=== PATIENT | female | born 1945 | race Two or more races ===

== ENCOUNTER 2017-03-21 18:20 | Emergency (ER) | payer MEDICARE, MEDICAID ==
[~2017-03-21] VITALS: Ht 157.5 cm; Wt 90.7 kg
--- NOTE | 2017-03-21 18:37 | NUR ---
DR REYES AT THE BEDSIDE FOR EVAL AND EXAM.
--- NOTE | 2017-03-21 18:39 | NUR ---
Pt states she is unable to recall her home medications at this time.
--- NOTE | 2017-03-21 20:09 | NUR ---
Patient discharged to home in stable conditon. Written and verbal after care instructions given. Patient verbalizes understanding of instructions.
== END 2017-03-21 20:10 | disposition home or self-care (01) ==
LOC: ER 18:20
DX: G81.90 Hemiplegia, unspecified affecting unspecified side (principal); R29.810 Facial weakness; I10 Essential (primary) hypertension; Z86.73 Personal history of transient ischemic attack (TIA), and cerebral infarction without residual deficits; Z79.82 Long term (current) use of aspirin
CPT/HCPCS: 70450; 99284; A4663

== ENCOUNTER 2018-03-18 12:55 | Inpatient (IN) | payer MEDICARE, MEDICAID ==
[~2018-03-18] VITALS: Ht 152.4 cm; Wt 92.1 kg
[2018-03-18] MEDS ORDERED: HYDROMORPHONE 2 MG/1 ML DISP.SYRIN ONE (13:39)
[2018-03-18] MEDS ORDERED: ONDANSETRON 4 MG/2 ML VIAL ONE (13:39)
[2018-03-18] MEDS ORDERED: ONDANSETRON 4 MG/2 ML VIAL IV ONE (13:45)
[2018-03-18] MEDS ORDERED: HYDROMORPHONE 1 MG/1 ML DISP.SYRIN IM ONE (13:45)
[2018-03-18 14:40] VITALS: BP 143/63
[2018-03-18] MEDS ORDERED: IV NORMAL SALINE 500 ML BAG IV ONE (15:00)
[2018-03-18 15:16] LABS: CARBON DIOXIDE 28 mmol/L (21-32); CHLORIDE 103 mmol/L (98-107); CREATININE 1.5 mg/dL (0.6-1.3); GLUCOSE 88 mg/dL (74-106); POTASSIUM 3.9 mmol/L (3.5-5.1); UREA NITROGEN, BLOOD 24 mg/dL (7-18)
[2018-03-18 15:17] LABS: BASOPHILS % (AUTO) 0.6 % (0.0-2.0); EOSINOPHILS # (AUTO) 0.1 K/uL (0.0-0.7); EOSINOPHILS % (AUTO) 1.6 % (0.0-7.0); HEMATOCRIT 34.2 % (31.2-41.9); HEMOGLOBIN 11.4 g/dL (10.9-14.3); LYMPHOCYTES # (AUTO) 1.8 K/uL (20.0-40.0); LYMPHOCYTES % (AUTO) 29.3 % (20.5-51.5); MEAN CORPUSCULAR HEMOGLOBIN 29.8 uug (24.7-32.8); MEAN CORPUSCULAR HGB CONC 33 g/dL (32.3-35.6); MEAN CORPUSCULAR VOLUME 89.5 fL (75.5-95.3); MONOCYTES # (AUTO) 0.4 K/uL (2.0-10.0); MONOCYTES % (AUTO) 6.4 % (0.0-11.0); NEUTROPHILS # (AUTO) 3.8 K/uL (1.8-8.9); NEUTROPHILS % (AUTO) 62.1 % (38.5-71.5); PLATELET COUNT (AUTO) 172 K/uL (179-408); RED BLOOD CELL COUNT(AUTO) 3.82 MIL/uL (3.63-4.92); WHITE BLOOD COUNT (AUTO) 6.1 K/uL (3.8-11.8)
[2018-03-18 15:21] LABS: ALANINE AMINOTRANSFERASE 22 U/L (14-59); ALKALINE PHOSPHATASE 59 U/L (50-136); ASPARTATE AMINOTRANSFERASE 26 U/L (15-37); BILIRUBIN,DIRECT 0.1 mg/dL (0.0-0.2); BILIRUBIN,TOTAL 0.3 mg/dL (0.2-1.0); LIPASE 138 U/L (73-393); TOTAL PROTEIN, SERUM 7.2 g/dL (6.4-8.2)
[2018-03-18] MEDS ORDERED: OMEG-49 PO (18:17)
[2018-03-18] MEDS ORDERED: CLOP75TA15 PO (18:17)
[2018-03-18] MEDS ORDERED: ATOR20TA PO (18:17)
[2018-03-18] MEDS ORDERED: TRAM50TA2 PO (18:17)
[2018-03-18] MEDS ORDERED: OMEP40CA37 PO (18:17)
[2018-03-18] MEDS ORDERED: SERT25TA PO (18:17)
[2018-03-18] MEDS ORDERED: GABA-534 PO (18:17)
[2018-03-18] MEDS ORDERED: METO-356 PO (18:17)
[2018-03-18] MEDS ORDERED: ZOLP10TA2 PO (18:17)
[2018-03-18] MEDS ORDERED: VALS160T2 PO (18:17)
[2018-03-18] MEDS ORDERED: LEVO88TA2 PO (18:17)
[2018-03-18 20:00] VITALS: BP 116/48
[2018-03-18] MEDS ORDERED: TRAMADOL HCL 50 MG TABLET PO PRN (20:45)
[2018-03-18] MEDS ORDERED: Z GUARD REMEDY PASTE 57 GM TUBE TOP PRN (20:45)
[2018-03-18] MEDS ORDERED: ONDANSETRON 4 MG/2 ML VIAL IV PRN (20:45)
[2018-03-18] MEDS ORDERED: ACETAMINOPHEN 325 MG TABLET PO PRN (20:45)
[2018-03-18] MEDS: HYDROCODONE/APAP 5-325MG TABLET PO PRN (21:04)
[2018-03-18] MEDS: ONDANSETRON 4 MG/2 ML VIAL IV PRN (21:04)
[2018-03-18] MEDS: IV NS 1000 ML 1,000 ML IV PRN (21:24)
[2018-03-18] MEDS: ZOLPIDEM 5 MG TABLET PO PRN (22:50)
[2018-03-19] MEDS: HYDROCODONE/APAP 5-325MG TABLET PO PRN ×2 (03:50→14:01)
[2018-03-19 05:02] VITALS: BP 138/55
[2018-03-19 06:38] LABS: BASOPHILS % (AUTO) 0.3 % (0.0-2.0); EOSINOPHILS # (AUTO) 0.1 K/uL (0.0-0.7); EOSINOPHILS % (AUTO) 1.5 % (0.0-7.0); HEMATOCRIT 28.9 % (31.2-41.9); HEMOGLOBIN 9.7 g/dL (10.9-14.3); LYMPHOCYTES # (AUTO) 1.6 K/uL (20.0-40.0); LYMPHOCYTES % (AUTO) 29.7 % (20.5-51.5); MEAN CORPUSCULAR HEMOGLOBIN 29.7 uug (24.7-32.8); MEAN CORPUSCULAR HGB CONC 34 g/dL (32.3-35.6); MEAN CORPUSCULAR VOLUME 88.4 fL (75.5-95.3); MONOCYTES # (AUTO) 0.4 K/uL (2.0-10.0); NEUTROPHILS # (AUTO) 3.4 K/uL (1.8-8.9); NEUTROPHILS % (AUTO) 61.5 % (38.5-71.5); PLATELET COUNT (AUTO) 147 K/uL (179-408); RED BLOOD CELL COUNT(AUTO) 3.27 MIL/uL (3.63-4.92); WHITE BLOOD COUNT (AUTO) 5.5 K/uL (3.8-11.8)
[2018-03-19] MEDS: LEVOTHYROXINE SODIUM 88 MCG TABLET PO SCH (06:43)
[2018-03-19 07:09] LABS: ALANINE AMINOTRANSFERASE 16 U/L (14-59); ALKALINE PHOSPHATASE 47 U/L (50-136); ASPARTATE AMINOTRANSFERASE 22 U/L (15-37); BILIRUBIN,TOTAL 0.3 mg/dL (0.2-1.0); CARBON DIOXIDE 27 mmol/L (21-32); CHLORIDE 105 mmol/L (98-107); CHOLESTEROL 264 mg/dL (<200); CREATININE 1.5 mg/dL (0.6-1.3); GLUCOSE 79 mg/dL (74-106); HDL CHOLESTEROL 45 mg/dL (40-60); PHOSPHOROUS 3.6 mg/dL (2.5-4.9); POTASSIUM 4.3 mmol/L (3.5-5.1); TOTAL PROTEIN, SERUM 5.8 g/dL (6.4-8.2); TRIGLYCERIDES 180 MG/DL (30-150); UREA NITROGEN, BLOOD 24 mg/dL (7-18)
[2018-03-19] MEDS: SERTRALINE HCL 50 MG TABLET PO SCH (08:19)
[2018-03-19] MEDS: GABAPENTIN 300 MG CAPSULE PO SCH ×2 (08:19→16:35)
[2018-03-19] MEDS: CLOPIDOGREL 75 MG TABLET PO SCH (08:21)
[2018-03-19] MEDS ORDERED: METOPROLOL SUCCINATE XL 25 MG TAB.SR.24H PO SCH (09:00)
[2018-03-19] MEDS ORDERED: ATORVASTATIN 20 MG TABLET PO SCH (09:00)
[2018-03-19] MEDS ORDERED: VALSARTAN 160 MG TABLET PO SCH (09:00)
[2018-03-19] MEDS: IV NS 1000 ML 1,000 ML IV PRN (11:25)
[2018-03-19 11:30] VITALS: BP 121/86
[2018-03-19] MEDS ORDERED: MAGNESIUM SULFATE 2 GM in IV DEXTROSE 5% 100 ML IV ONE (14:15)
[2018-03-19 15:08] VITALS: BP 147/77
[2018-03-19] MEDS: MAGNESIUM SULFATE/D5W 100 ML IV SCH ×2 (15:11→16:10)
[2018-03-19 20:29] VITALS: BP 131/57
[2018-03-19] MEDS: ZOLPIDEM 5 MG TABLET PO PRN (21:16)
[2018-03-20] MEDS: IV NS 1000 ML 1,000 ML IV PRN (02:39)
[2018-03-20 04:53] VITALS: BP 126/69
[2018-03-20 06:32] LABS: CARBON DIOXIDE 27 mmol/L (21-32); CHLORIDE 102 mmol/L (98-107); CREATININE 1.2 mg/dL (0.6-1.3); GLUCOSE 93 mg/dL (74-106); MAGNESIUM 1.8 mg/dL (1.8-2.4); POTASSIUM 4.5 mmol/L (3.5-5.1); UREA NITROGEN, BLOOD 20 mg/dL (7-18)
[2018-03-20 06:43] LABS: BASOPHILS % (AUTO) 0.3 % (0.0-2.0); EOSINOPHILS # (AUTO) 0.1 K/uL (0.0-0.7); EOSINOPHILS % (AUTO) 0.9 % (0.0-7.0); LYMPHOCYTES # (AUTO) 1.3 K/uL (20.0-40.0); LYMPHOCYTES % (AUTO) 16.8 % (20.5-51.5); MEAN CORPUSCULAR HGB CONC 34 g/dL (32.3-35.6); MONOCYTES # (AUTO) 0.3 K/uL (2.0-10.0); MONOCYTES % (AUTO) 4.3 % (0.0-11.0); NEUTROPHILS # (AUTO) 5.8 K/uL (1.8-8.9); NEUTROPHILS % (AUTO) 77.7 % (38.5-71.5); PLATELET COUNT (AUTO) 155 K/uL (179-408); RED BLOOD CELL COUNT(AUTO) 3.65 MIL/uL (3.63-4.92)
[2018-03-20] MEDS: ONDANSETRON 4 MG/2 ML VIAL IV PRN (06:46)
[2018-03-20 07:11] LABS: HEMATOCRIT 32.2 % (31.2-41.9); WHITE BLOOD COUNT (AUTO) 7.5 K/uL (3.8-11.8)
[2018-03-20] MEDS: SERTRALINE HCL 50 MG TABLET PO SCH (08:05)
[2018-03-20] MEDS: VALSARTAN 160 MG TABLET PO SCH (08:05)
[2018-03-20] MEDS: LEVOTHYROXINE SODIUM 88 MCG TABLET PO SCH (08:05)
[2018-03-20] MEDS: GABAPENTIN 300 MG CAPSULE PO SCH ×2 (08:05→16:23)
[2018-03-20] MEDS: CLOPIDOGREL 75 MG TABLET PO SCH (08:09)
[2018-03-20] MEDS ORDERED: ATORVASTATIN 20 MG TABLET PO SCH (09:00)
[2018-03-20 11:02] VITALS: BP 185/90
[2018-03-20 15:07] VITALS: BP 155/59
[2018-03-20 20:00] VITALS: BP 114/66
[2018-03-20] MEDS: ZOLPIDEM 5 MG TABLET PO PRN (20:31)
[2018-03-20] MEDS: ATORVASTATIN 40 MG TABLET PO SCH (20:31)
[2018-03-20] MEDS: HYDROCODONE/APAP 5-325MG TABLET PO PRN (23:42)
[2018-03-21] MEDS: LEVOTHYROXINE SODIUM 88 MCG TABLET PO SCH (06:03)
[2018-03-21] MEDS: SERTRALINE HCL 50 MG TABLET PO SCH ×2 (08:10→12:31)
[2018-03-21] MEDS: CLOPIDOGREL 75 MG TABLET PO SCH ×2 (08:10→09:00)
[2018-03-21] MEDS: VALSARTAN 160 MG TABLET PO SCH ×2 (08:10→12:32)
[2018-03-21] MEDS: GABAPENTIN 300 MG CAPSULE PO SCH ×3 (08:10→17:29)
[2018-03-21] MEDS ORDERED: LORAZEPAM 2 MG/1 ML VIAL IV PRN (08:30)
[2018-03-21 11:42] VITALS: BP 108/60
[2018-03-21 11:42] LABS: CARBON DIOXIDE 24 mmol/L (21-32); CHLORIDE 100 mmol/L (98-107); CREATININE 1.4 mg/dL (0.6-1.3); GLUCOSE 101 mg/dL (74-106); POTASSIUM 4.6 mmol/L (3.5-5.1); UREA NITROGEN, BLOOD 19 mg/dL (7-18)
[2018-03-21 11:46] LABS: BASOPHILS % (AUTO) 0.6 % (0.0-2.0); EOSINOPHILS % (AUTO) 0.3 % (0.0-7.0); HEMATOCRIT 37.3 % (31.2-41.9); HEMOGLOBIN 12.7 g/dL (10.9-14.3); LYMPHOCYTES # (AUTO) 1.7 K/uL (20.0-40.0); LYMPHOCYTES % (AUTO) 21.8 % (20.5-51.5); MEAN CORPUSCULAR HEMOGLOBIN 30.1 uug (24.7-32.8); MEAN CORPUSCULAR HGB CONC 34 g/dL (32.3-35.6); MEAN CORPUSCULAR VOLUME 88.5 fL (75.5-95.3); MONOCYTES # (AUTO) 0.5 K/uL (2.0-10.0); MONOCYTES % (AUTO) 6.3 % (0.0-11.0); NEUTROPHILS # (AUTO) 5.4 K/uL (1.8-8.9); PLATELET COUNT (AUTO) 184 K/uL (179-408); RED BLOOD CELL COUNT(AUTO) 4.22 MIL/uL (3.63-4.92); WHITE BLOOD COUNT (AUTO) 7.6 K/uL (3.8-11.8)
[2018-03-21 14:05] LABS: *BILIRUBIN,URIN NEGATIVE (NEGATIVE); *BLOOD, URINE 2+ (NEGATIVE); *CLARITY,URINE SLIGHTLY CLOUDY (CLEAR); *COLOR,URINE YELLOW (YELLOW); *KETONES,URINE NEGATIVE (NEGATIVE); *UROBILINOGEN,URINE 0.2 E.U./dl (NORMAL); LEUKOCYTE ESTERASE ,URINE NEGATIVE (NEGATIVE); NITRITE, URINE NEGATIVE (NEGATIVE); PH,URINE 5.5 (5.0-8.0); UGLUCOSE NEGATIVE (NEGATIVE)
[2018-03-21 14:10] LABS: *PROTEIN,URINE 3+ (NEGATIVE)
[2018-03-21 14:12] LABS: BACTERIA,URINE MODERATE /HPF (NONE SEEN); SQUAMOUS EPITHELIAL CELL,UR FEW /HPF (NONE SEEN)
[2018-03-21 15:09] VITALS: BP 122/58
[2018-03-21 16:52] VITALS: BP 148/70
[2018-03-21 20:00] VITALS: BP 145/67
[2018-03-21] MEDS: ATORVASTATIN 40 MG TABLET PO SCH (20:46)
[2018-03-22 04:00] VITALS: BP 142/68
[2018-03-22] MEDS: LEVOTHYROXINE SODIUM 88 MCG TABLET PO SCH (06:03)
[2018-03-22] MEDS: CLOPIDOGREL 75 MG TABLET PO SCH ×2 (08:01→17:37)
[2018-03-22] MEDS: GABAPENTIN 300 MG CAPSULE PO SCH ×3 (08:01→16:15)
[2018-03-22] MEDS: VALSARTAN 160 MG TABLET PO SCH ×2 (08:01→15:16)
[2018-03-22] MEDS: SERTRALINE HCL 50 MG TABLET PO SCH ×2 (08:02→15:15)
[2018-03-22] MEDS ORDERED: LEVOTHYROXINE SODIUM 112 MCG TABLET PO SCH (10:24)
[2018-03-22] MEDS ORDERED: LEVOTHYROXINE SODIUM 100 MCG VIAL IV ONE (11:00)
[2018-03-22] MEDS ORDERED: LEVOTHYROXINE SODIUM 112 MCG TABLET PO ONE (17:30)
[2018-03-22] MEDS ORDERED: OLANZAPINE ZYDIS 5 MG TAB.RAPDIS PO PRN (17:45)
[2018-03-22 20:00] VITALS: BP 93/45
[2018-03-22] MEDS: ATORVASTATIN 40 MG TABLET PO SCH (20:11)
[2018-03-23 04:22] VITALS: BP 110/63
[2018-03-23] MEDS: LEVOTHYROXINE SODIUM 112 MCG TABLET PO SCH (06:47)
[2018-03-23] MEDS ORDERED: LEVOTHYROXINE SODIUM 88 MCG TABLET PO SCH (07:00)
[2018-03-23] MEDS: GABAPENTIN 300 MG CAPSULE PO SCH ×2 (09:54→17:49)
[2018-03-23] MEDS: SERTRALINE HCL 50 MG TABLET PO SCH (09:54)
[2018-03-23] MEDS: CLOPIDOGREL 75 MG TABLET PO SCH (09:54)
[2018-03-23] MEDS: VALSARTAN 160 MG TABLET PO SCH (09:55)
[2018-03-23 11:40] VITALS: BP 115/50
[2018-03-23 16:12] VITALS: BP 93/40
[2018-03-23 20:00] VITALS: BP 98/58
[2018-03-23] MEDS: ATORVASTATIN 40 MG TABLET PO SCH (20:33)
[2018-03-24 04:00] VITALS: BP 115/55
[2018-03-24] MEDS: LEVOTHYROXINE SODIUM 112 MCG TABLET PO SCH (07:00)
[2018-03-24] MEDS: VALSARTAN 160 MG TABLET PO SCH (09:00)
[2018-03-24] MEDS: GABAPENTIN 300 MG CAPSULE PO SCH ×2 (09:25→18:41)
[2018-03-24] MEDS: CLOPIDOGREL 75 MG TABLET PO SCH (09:26)
[2018-03-24] MEDS: SERTRALINE HCL 50 MG TABLET PO SCH (09:26)
[2018-03-24 11:07] VITALS: BP 113/54
[2018-03-24 15:43] VITALS: BP 110/60
[2018-03-24 20:00] VITALS: BP 147/79
[2018-03-24] MEDS: ATORVASTATIN 40 MG TABLET PO SCH (21:00)
[2018-03-25 06:00] VITALS: BP 129/60
[2018-03-25] MEDS: LEVOTHYROXINE SODIUM 112 MCG TABLET PO SCH (06:05)
[2018-03-25] MEDS: VALSARTAN 160 MG TABLET PO SCH (09:30)
[2018-03-25] MEDS: CLOPIDOGREL 75 MG TABLET PO SCH (09:31)
[2018-03-25] MEDS: GABAPENTIN 300 MG CAPSULE PO SCH ×2 (09:31→18:01)
[2018-03-25 11:03] VITALS: BP 121/64
[2018-03-25 15:14] VITALS: BP 120/70
[2018-03-25] MEDS: HYDROCODONE/APAP 5-325MG TABLET PO PRN (20:17)
[2018-03-25] MEDS: ATORVASTATIN 40 MG TABLET PO SCH (20:18)
[2018-03-25 20:21] VITALS: BP 146/76
[2018-03-26] MEDS ORDERED: PANTOPRAZOLE SODIUM 40 MG TABLET.DR PO SCH (07:00)
== END 2018-03-25 20:34 | DRG 347 ==
LOC: ER 12:55 → MED 16:14
PROVIDERS: ADMIT Nurse Practitioner Acute Care; ATTEND Nurse Practitioner Acute Care
DX: M51.17 Intervertebral disc disorders with radiculopathy, lumbosacral region (principal); N17.0 Acute kidney failure with tubular necrosis; G93.40 Encephalopathy, unspecified; E88.09 Other disorders of plasma-protein metabolism, not elsewhere classified; E83.42 Hypomagnesemia; I13.10 Hypertensive heart and chronic kidney disease without heart failure, with stage 1 through stage 4 chronic kidney disease, or unspecified chronic kidney disease; M43.06 Spondylolysis, lumbar region; M46.05 Spinal enthesopathy, thoracolumbar region; M06.9 Rheumatoid arthritis, unspecified; E66.01 Morbid (severe) obesity due to excess calories; E78.5 Hyperlipidemia, unspecified; Z68.39 Body mass index [BMI] 39.0-39.9, adult; Z86.73 Personal history of transient ischemic attack (TIA), and cerebral infarction without residual deficits; I25.2 Old myocardial infarction; E89.0 Postprocedural hypothyroidism; Z90.710 Acquired absence of both cervix and uterus; I08.0 Rheumatic disorders of both mitral and aortic valves; K21.9 Gastro-esophageal reflux disease without esophagitis; G31.9 Degenerative disease of nervous system, unspecified; F32.9 Major depressive disorder, single episode, unspecified; N18.9 Chronic kidney disease, unspecified; Z91.14 Patient's other noncompliance with medication regimen; Z79.899 Other long term (current) drug therapy; F22 Delusional disorders
CPT/HCPCS: 36415; 70030-TC; 70450; 71045; 72100; 83605; 83690; 83735; 84100; 84443; 84480; 85025; 85730; 87040; 93005; 93307; 97110; 97116; 97165; 97530; A4663; C1758; J1170; J2060; J2405; J3475; J7030; J7040; J7060

== ENCOUNTER 2018-07-06 19:08 | Inpatient (IN) | payer MEDICAID, MEDICARE ==
[~2018-07-06] VITALS: Ht 160 cm; Wt 81.2 kg
[~2018-07-06 19:08] MED LIST: ATOR20TA PO; CLOP75TA15 PO; GABA-534 PO; LEVO88TA2 PO; METO-356 PO; OMEG-49 PO; OMEP40CA37 PO; SERT25TA PO; TRAM50TA2 PO; VALS160T2 PO; ZOLP10TA2 PO
[2018-07-06 19:30] VITALS: BP 102/78
[2018-07-06] MEDS ORDERED: Z GUARD REMEDY PASTE 57 GM TUBE TOP PRN (19:30)
[2018-07-06] MEDS ORDERED: MAGNESIUM HYDROXIDE 30 ML LIQUID UDC PO PRN (19:30)
[2018-07-06] MEDS ORDERED: WARF-68 PO (20:02)
[2018-07-06] MEDS ORDERED: AMIO200T4 PO (20:02)
[2018-07-06] MEDS ORDERED: ICOS1CAP PO (20:02)
[2018-07-06] MEDS ORDERED: [UNRECOGNIZED DRUG - CODE] PO (20:02)
[2018-07-06] MEDS ORDERED: ZOLPIDEM 5 MG TABLET PO PRN (20:15)
--- NOTE | 2018-07-06 23:28 | NUR ---
Pt came in at 1900 in the unit via gurney, coming from [facility] transported by ambulance. Vital signs WNL. AAO X4. No acute distress noted. No c/o pain or discomfort. All pertinent assessments done. Oriented pt to the unit and equipment. Med recon done by Katelyn STILL. MRSA swab sent to lab. Pt's family came shortly. Safety measures maintained. Call light and personal belongings within reach. Will continue to monitor.
[2018-07-07] VITALS (8 sets, daily range): BP systolic 84–111; BP diastolic 33–65
[2018-07-07] MEDS: PANTOPRAZOLE SODIUM 40 MG TABLET.DR PO SCH (06:31)
[2018-07-07] MEDS: LEVOTHYROXINE SODIUM 112 MCG TABLET PO SCH (06:32)
[2018-07-07] MEDS ORDERED: Medication Not On Formulary EA (Icosapent Ethyl (Vascepa) 1 GM) PO SCH (09:00)
[2018-07-07] MEDS ORDERED: VALSARTAN 160 MG TABLET PO SCH (09:00)
[2018-07-07] MEDS: GABAPENTIN 300 MG CAPSULE PO SCH ×3 (09:00→17:00)
[2018-07-07] MEDS: CLOPIDOGREL 75 MG TABLET PO SCH (09:31)
[2018-07-07] MEDS: FERROUS SULFATE 325 MG TABEC PO SCH (09:31)
[2018-07-07] MEDS: AMIODARONE HCL 200 MG TABLET PO SCH (09:32)
[2018-07-07] MEDS: METOPROLOL SUCCINATE XL 25 MG TAB.SR.24H PO SCH (09:33)
[2018-07-07] MEDS: SERTRALINE HCL 50 MG TABLET PO SCH (09:33)
[2018-07-07] MEDS: VALSARTAN 40 MG TABLET PO SCH (09:35)
[2018-07-07] MEDS: WARFARIN SODIUM 2 MG TABLET PO SCH (17:23)
--- NOTE | 2018-07-07 17:44 | NUR ---
Daily Nursing Note: Patient was not in distress all throughout the shift and denies any form of discomfort and pain. Patient although in pain management, refuses to take Neurontin, states that " it makes me week." MD aware, no new orders. Seen by Dr. Rashaad Zepeda, with no new orders at this time. Otherwise, patient participated with PT/OT evaluation. Needs attended promptly, kept comfortable.
[2018-07-07] MEDS: ATORVASTATIN 20 MG TABLET PO SCH (21:00)
[2018-07-08 04:30] VITALS: BP 77/34
[2018-07-08] MEDS: PANTOPRAZOLE SODIUM 40 MG TABLET.DR PO SCH (06:24)
[2018-07-08] MEDS: LEVOTHYROXINE SODIUM 112 MCG TABLET PO SCH (06:30)
--- NOTE | 2018-07-08 06:37 | NUR ---
Pt slept comfortably t/o the night. AAO x4. Pt's BP is in the low side, monitored t/o the shift. Asymptomatic. No c/o dizziness. No c/o pain or discomfort. Meds given as ordered. All needs attended to promptly. Safety measures maintained. Call light and personal belongings within reach. Will endorse to day shift RN. Continue to monitor.
--- NOTE | 2018-07-08 08:00 | NUR ---
Pt awake alert and oriented x 4. Discussed plan of care for the day re: fall precaution and being as independent as possible. Pt agreeable with plan of care. Call light is within reach.
[2018-07-08] MEDS: METOPROLOL SUCCINATE XL 25 MG TAB.SR.24H PO SCH (09:00)
[2018-07-08] MEDS: VALSARTAN 40 MG TABLET PO SCH (09:00)
[2018-07-08] MEDS: AMIODARONE HCL 200 MG TABLET PO SCH (09:00)
[2018-07-08] MEDS: SERTRALINE HCL 50 MG TABLET PO SCH (09:00)
--- NOTE | 2018-07-08 09:00 | NUR ---
Notified Dr hu Perez re: pt's low b/p's but asymptomatic. no new order received. Will continue to monitor pts b/p.
[2018-07-08] MEDS: CLOPIDOGREL 75 MG TABLET PO SCH (09:10)
[2018-07-08] MEDS: GABAPENTIN 300 MG CAPSULE PO SCH ×2 (09:12→17:03)
[2018-07-08] MEDS: FERROUS SULFATE 325 MG TABEC PO SCH (09:13)
--- NOTE | 2018-07-08 14:00 | NUR ---
Spoke with family, sister,member to bring in pts medication vascepa per pharmacy request. Pharmacy doesnt carry vascepa. Family will attempt to bring in medications today or tomorrow.
--- NOTE | 2018-07-08 14:07 | NUR ---
INTERDISCIPLINARY TEAM CONFERENCE
[2018-07-08 15:33] VITALS: BP 101/56
[2018-07-08] MEDS: WARFARIN SODIUM 2 MG TABLET PO SCH (17:05)
--- NOTE | 2018-07-08 18:31 | NUR ---
Brought pt's own meds, Vascepa, to pharmacy. Pharmacy to process pts own meds to be discarded back to patient. Pt is in no acute distress.
[2018-07-08 19:45] VITALS: BP 105/50
--- NOTE | 2018-07-08 20:05 | NUR ---
Patient received while sitting on the chair, AAO x4, able to make needs known.Her family were at the bedside. No sign of distress or SOB was noted. On room air with O2 sat 97%. Pain assessed, no sign of pain. Safety measures maintained. Bed alarm and brake on, side rails up x2. Call light and personal belongings within reach. Continue to monitor.
[2018-07-08] MEDS: [UNRECOGNIZED DRUG - OTHER] PO SCH (20:20)
[2018-07-08] MEDS: ATORVASTATIN 20 MG TABLET PO SCH (20:21)
--- NOTE | 2018-07-08 21:15 | NUR ---
Patient BP at 1999 was 70/23 RA and 73/23 LA, HR was 69, asymptomatic, no dizziness, no headache. Placed on a Trendelenburg position. BP checked again 105/50. Continue to monitor.
[2018-07-09 04:00] VITALS: BP 106/57
--- NOTE | 2018-07-09 05:10 | NUR ---
End of the shift note Patient remained stable throughout the shift. Had good sleep throughout the night. No acute changes noted. Kept patient clean, dry and comfortable. Assessed for pain, no complain of pain. No sign of acute distress or SOB was noted. Medication was given as ordered. Monitored vital signs. Safety precautions observed. Hourly rounding done, call light and telephone within reach at all times, bilateral half side rails up and bed brake son for safety. Will endorse accordingly to incoming shift for continuity of care.
[2018-07-09] MEDS: LEVOTHYROXINE SODIUM 112 MCG TABLET PO SCH (06:48)
[2018-07-09] MEDS: PANTOPRAZOLE SODIUM 40 MG TABLET.DR PO SCH (06:48)
[2018-07-09 09:00] VITALS: BP 111/64
[2018-07-09] MEDS: SERTRALINE HCL 50 MG TABLET PO SCH (09:00)
--- NOTE | 2018-07-09 09:00 | NUR ---
Current b/p 111/64. Will monitor patient secondary to pt's b/p goes down. Held amiodorone at this time and will recheck b/p @ 1200 to decide if pt's sbp will hold above 110.
[2018-07-09] MEDS: FERROUS SULFATE 325 MG TABEC PO SCH (09:08)
[2018-07-09] MEDS: CLOPIDOGREL 75 MG TABLET PO SCH (09:08)
[2018-07-09] MEDS: GABAPENTIN 300 MG CAPSULE PO SCH ×2 (09:08→16:28)
[2018-07-09] MEDS: [UNRECOGNIZED DRUG - OTHER] PO SCH ×2 (09:10→16:27)
[2018-07-09 12:00] VITALS: BP 90/42
[2018-07-09] MEDS: AMIODARONE HCL 200 MG TABLET PO SCH (12:00)
--- NOTE | 2018-07-09 12:00 | NUR ---
amiodorone held secondary to low b/p. Pt asymptomatic. Pt tolerated physical therapy sessions
[2018-07-09 12:43] LABS: ALANINE AMINOTRANSFERASE 24 U/L (14-59); ALKALINE PHOSPHATASE 57 U/L (50-136); ASPARTATE AMINOTRANSFERASE 18 U/L (15-37); BILIRUBIN,TOTAL 0.4 mg/dL (0.2-1.0); CARBON DIOXIDE 23 mmol/L (21-32); CHLORIDE 105 mmol/L (98-107); CREATININE 1.9 mg/dL (0.6-1.3); GLUCOSE 115 mg/dL (74-106); MAGNESIUM 1.7 mg/dL (1.8-2.4); PHOSPHOROUS 4.4 mg/dL (2.5-4.9); POTASSIUM 3.9 mmol/L (3.5-5.1); TOTAL PROTEIN, SERUM 6.3 g/dL (6.4-8.2); UREA NITROGEN, BLOOD 57 mg/dL (7-18)
[2018-07-09 12:47] LABS: BASOPHILS % (AUTO) 0.3 % (0.0-2.0); EOSINOPHILS # (AUTO) 0.1 K/uL (0.0-0.7); EOSINOPHILS % (AUTO) 1.2 % (0.0-7.0); HEMATOCRIT 32.8 % (31.2-41.9); HEMOGLOBIN 10.7 g/dL (10.9-14.3); LYMPHOCYTES # (AUTO) 1.3 K/uL (20.0-40.0); LYMPHOCYTES % (AUTO) 17.8 % (20.5-51.5); MEAN CORPUSCULAR HEMOGLOBIN 28.5 uug (24.7-32.8); MEAN CORPUSCULAR HGB CONC 33 g/dL (32.3-35.6); MEAN CORPUSCULAR VOLUME 87.3 fL (75.5-95.3); MONOCYTES # (AUTO) 0.6 K/uL (2.0-10.0); MONOCYTES % (AUTO) 7.4 % (0.0-11.0); NEUTROPHILS # (AUTO) 5.5 K/uL (1.8-8.9); NEUTROPHILS % (AUTO) 73.3 % (38.5-71.5); PLATELET COUNT (AUTO) 208 K/uL (179-408); RED BLOOD CELL COUNT(AUTO) 3.75 MIL/uL (3.63-4.92); WHITE BLOOD COUNT (AUTO) 7.5 K/uL (3.8-11.8)
--- NOTE | 2018-07-09 14:08 | NUR ---
INTERDISCIPLINARY TEAM CONFERENCE
[2018-07-09 15:39] VITALS: BP 93/51
--- NOTE | 2018-07-09 16:00 | NUR ---
SBP 90's pt remains asymptomatic. Pt sitting in chair for dinner. Will continue to monitor patient. Pt denies any c/o pain.
[2018-07-09] MEDS: WARFARIN SODIUM 2 MG TABLET PO SCH (16:30)
--- NOTE | 2018-07-09 20:00 | NUR ---
Patient received on bed, AAO x4, able to make needs known. No sign of distress or SOB was noted. On room air with O2 sat 95%. Pain assessed, no sign of pain. Safety measures maintained. Bed alarm and brake on, side rails up x2. Call light and personal belongings within reach. Continue to monitor.
[2018-07-09 20:14] VITALS: BP 96/53
[2018-07-09] MEDS: ATORVASTATIN 20 MG TABLET PO SCH (20:16)
[2018-07-10 05:19] VITALS: BP 98/58
[2018-07-10] MEDS: PANTOPRAZOLE SODIUM 40 MG TABLET.DR PO SCH (06:19)
[2018-07-10] MEDS: LEVOTHYROXINE SODIUM 112 MCG TABLET PO SCH (06:30)
[2018-07-10] MEDS: AMIODARONE HCL 200 MG TABLET PO SCH (08:14)
[2018-07-10] MEDS: CLOPIDOGREL 75 MG TABLET PO SCH (08:15)
[2018-07-10] MEDS: GABAPENTIN 300 MG CAPSULE PO SCH ×2 (08:15→16:28)
[2018-07-10] MEDS: FERROUS SULFATE 325 MG TABEC PO SCH (08:15)
[2018-07-10] MEDS: SERTRALINE HCL 50 MG TABLET PO SCH (08:16)
[2018-07-10] MEDS: [UNRECOGNIZED DRUG - OTHER] PO SCH ×2 (08:18→16:29)
[2018-07-10 09:36] VITALS: BP 93/39
[2018-07-10 11:54] VITALS: BP 92/63
[2018-07-10 16:13] VITALS: BP 99/55
--- NOTE | 2018-07-10 17:42 | NUR ---
Patient latest BP 99/55. no complaint of dizziness. discontinue coumadin 2mg. INR 3.45. no signs/symptoms of bleeding. will continue monitor
--- NOTE | 2018-07-10 19:45 | NUR ---
Pt is awake and laying in low fowlers position . Her granddaughter is in room with pt . Pt has no signs of distress and has no c/o pain . A & O x 4 , VSS .
[2018-07-10] MEDS: ATORVASTATIN 20 MG TABLET PO SCH (20:12)
[2018-07-10 20:34] VITALS: BP 102/52
[2018-07-11 05:00] VITALS: BP 105/50
[2018-07-11] MEDS: LEVOTHYROXINE SODIUM 112 MCG TABLET PO SCH (06:31)
[2018-07-11] MEDS: PANTOPRAZOLE SODIUM 40 MG TABLET.DR PO SCH (06:31)
[2018-07-11] MEDS: TRAMADOL HCL 50 MG TABLET PO PRN ×2 (06:39→20:24)
--- NOTE | 2018-07-11 07:07 | NUR ---
Pt slept well during the shift . Pt had no signs of distress , pt had c/o pain in right shoulder , pain a . Pt received Tramadol 50 mg for pain . VSS and pt is A & O x 4 .
[2018-07-11 07:12] LABS: BASOPHILS % (AUTO) 0.5 % (0.0-2.0); EOSINOPHILS # (AUTO) 0.2 K/uL (0.0-0.7); EOSINOPHILS % (AUTO) 2.3 % (0.0-7.0); HEMATOCRIT 26.1 % (31.2-41.9); HEMOGLOBIN 8.6 g/dL (10.9-14.3); LYMPHOCYTES # (AUTO) 1.3 K/uL (20.0-40.0); LYMPHOCYTES % (AUTO) 18.9 % (20.5-51.5); MEAN CORPUSCULAR HEMOGLOBIN 28.7 uug (24.7-32.8); MEAN CORPUSCULAR HGB CONC 33 g/dL (32.3-35.6); MEAN CORPUSCULAR VOLUME 86.8 fL (75.5-95.3); MONOCYTES # (AUTO) 0.5 K/uL (2.0-10.0); MONOCYTES % (AUTO) 7.7 % (0.0-11.0); NEUTROPHILS # (AUTO) 4.8 K/uL (1.8-8.9); NEUTROPHILS % (AUTO) 70.6 % (38.5-71.5); PLATELET COUNT (AUTO) 158 K/uL (179-408); RED BLOOD CELL COUNT(AUTO) 3.01 MIL/uL (3.63-4.92); WHITE BLOOD COUNT (AUTO) 6.8 K/uL (3.8-11.8)
[2018-07-11 07:43] LABS: THYROID STIMULATING HORMONE 2.273 mIU/mL (0.358-3.740)
[2018-07-11 08:00] VITALS: BP 91/34
--- NOTE | 2018-07-11 08:00 | NUR ---
Nurse Notes: Noted patient to have BP: 91/ 34, HR: 71, RR:20 and temp of 98.4 taken orally. Denies any dizziness, light headedness or any discomforts at this time. Will continue to monitor.
[2018-07-11 08:03] LABS: ALANINE AMINOTRANSFERASE 20 U/L (14-59); ALKALINE PHOSPHATASE 49 U/L (50-136); ASPARTATE AMINOTRANSFERASE 19 U/L (15-37); BILIRUBIN,TOTAL 0.2 mg/dL (0.2-1.0); CARBON DIOXIDE 25 mmol/L (21-32); CHLORIDE 108 mmol/L (98-107); CHOLESTEROL 118 mg/dL (<200); CREATININE 1.3 mg/dL (0.6-1.3); GLUCOSE 90 mg/dL (74-106); HDL CHOLESTEROL 46 mg/dL (40-60); MAGNESIUM 1.7 mg/dL (1.8-2.4); PHOSPHOROUS 3.4 mg/dL (2.5-4.9); POTASSIUM 4.2 mmol/L (3.5-5.1); TOTAL PROTEIN, SERUM 5.6 g/dL (6.4-8.2); TRIGLYCERIDES 105 MG/DL (30-150); UREA NITROGEN, BLOOD 52 mg/dL (7-18)
[2018-07-11] MEDS: AMIODARONE HCL 200 MG TABLET PO SCH (09:00)
[2018-07-11] MEDS: SERTRALINE HCL 50 MG TABLET PO SCH ×2 (09:00→09:21)
--- NOTE | 2018-07-11 09:00 | NUR ---
Nurse Notes: Rechecked vital signs. checked patient's BP on both arms with results as follows: Right arm- BP: 110/55 HR:75; Left arm-86/31 and HR: 74. patient currently denies any light headedness, dizziness or discomforts. Called Dr. Guy Gale and informed of the vital signs. no new orders at this time. Patient made aware. Will continue to monitor.
[2018-07-11] MEDS: GABAPENTIN 300 MG CAPSULE PO SCH ×2 (09:20→17:00)
[2018-07-11] MEDS: FERROUS SULFATE 325 MG TABEC PO SCH (09:21)
[2018-07-11] MEDS: [UNRECOGNIZED DRUG - OTHER] PO SCH ×2 (09:22→17:21)
[2018-07-11] MEDS ORDERED: MAGNESIUM OXIDE 400 MG TABLET PO ONE (14:45)
[2018-07-11 16:00] VITALS: BP 101/42
--- NOTE | 2018-07-11 18:06 | NUR ---
Nurse Notes: Patient alert and oriented x 4, no SOB or distress. Denies any pain or discomforts. All needs were attended and anticipated. Safety precautions observed, hourly rounding done, call light and telephone within reach at all times. Will endorse accordingly to incoming shift for continuity of care.
[2018-07-11 19:48] VITALS: BP 102/70
[2018-07-11] MEDS: ATORVASTATIN 20 MG TABLET PO SCH (20:21)
--- NOTE | 2018-07-11 20:57 | NUR ---
Received pt resting in bed. AAO x4. No acute distress noted. C/o pain on the shoulder area 05/28, pain med requested and was given. Safety measures maintained. Call light and personal belongings within reach. Will continue to monitor.
[2018-07-11] MEDS: ZOLPIDEM 5 MG TABLET PO PRN (21:52)
[2018-07-12 05:30] VITALS: BP 121/40
[2018-07-12] MEDS: PANTOPRAZOLE SODIUM 40 MG TABLET.DR PO SCH (06:19)
[2018-07-12] MEDS: LEVOTHYROXINE SODIUM 112 MCG TABLET PO SCH (06:35)
[2018-07-12 08:00] VITALS: BP 95/46
[2018-07-12] MEDS: FERROUS SULFATE 325 MG TABEC PO SCH (09:01)
[2018-07-12] MEDS: [UNRECOGNIZED DRUG - OTHER] PO SCH ×2 (09:01→18:03)
[2018-07-12] MEDS: GABAPENTIN 300 MG CAPSULE PO SCH ×2 (09:01→18:03)
[2018-07-12] MEDS: SERTRALINE HCL 50 MG TABLET PO SCH (09:01)
[2018-07-12] MEDS: AMIODARONE HCL 200 MG TABLET PO SCH (09:02)
--- NOTE | 2018-07-12 10:15 | NUR ---
Received patient, awake, alert x4. With tolerable pain over lower back, refused pain medications at this time. Not in any form of distress. Morning care done. Encouraged to call for needs.
--- NOTE | 2018-07-12 14:13 | NUR ---
INTERDISCIPLINARY TEAM CONFERENCE
[2018-07-12] MEDS: WARFARIN SODIUM 2 MG TABLET PO SCH (18:04)
[2018-07-12 20:13] VITALS: BP 124/69
[2018-07-12] MEDS: ATORVASTATIN 20 MG TABLET PO SCH (21:05)
[2018-07-12] MEDS: ZOLPIDEM 5 MG TABLET PO PRN (21:06)
--- NOTE | 2018-07-12 21:20 | NUR ---
Received pt sitting on the wheelchair. AAO x4. No acute distress noted. No c/o pain or discomfort at this time. Dr. Tovar seen pt. Civil Designer also seen pt. Pt now back to bed, requested Cassandra. All meds given as ordered. Safety measures maintained. Call light and personal belongings within reach. Will continue to monitor.
[2018-07-13 05:49] VITALS: BP 107/43
[2018-07-13] MEDS: PANTOPRAZOLE SODIUM 40 MG TABLET.DR PO SCH (06:36)
[2018-07-13] MEDS: LEVOTHYROXINE SODIUM 112 MCG TABLET PO SCH (06:36)
[2018-07-13 08:00] VITALS: BP 112/45
--- NOTE | 2018-07-13 09:00 | NUR ---
Received patient, awake, alert x4. Not in any form of distress, no chest pains or SOB. On room air, sating well. Up with physical therapy. With generalized pain over back, shoulders and knees. Patient said said it was all over. PRN Tramadol given.
[2018-07-13] MEDS: SERTRALINE HCL 50 MG TABLET PO SCH (09:51)
[2018-07-13] MEDS: [UNRECOGNIZED DRUG - OTHER] PO SCH ×2 (09:51→17:28)
[2018-07-13] MEDS: GABAPENTIN 300 MG CAPSULE PO SCH ×2 (09:52→17:28)
[2018-07-13] MEDS: AMIODARONE HCL 200 MG TABLET PO SCH (09:52)
[2018-07-13] MEDS: TRAMADOL HCL 50 MG TABLET PO PRN (09:52)
[2018-07-13] MEDS: FERROUS SULFATE 325 MG TABEC PO SCH (09:52)
--- NOTE | 2018-07-13 10:07 | NUR ---
Up with occupational therapy. Tolerating therapy well. Patient showering well.
[2018-07-13 16:34] VITALS: BP 98/40
[2018-07-13] MEDS: WARFARIN SODIUM 2 MG TABLET PO SCH (17:28)
--- NOTE | 2018-07-13 19:30 | NUR ---
Received patient from day shift nurse awake, alert, with no acute distress noted. Patient lying in bed comfortably denying pain & SOB. Vital signs within range at start of shift. A/Ox3-4 & able to make all her needs known. Pertinent assessment completed. Room checked for safety beginning of shift. Call light within reach of patient. Will continue to monitor through shift.
[2018-07-13 20:09] VITALS: BP 111/55
[2018-07-13] MEDS: ATORVASTATIN 20 MG TABLET PO SCH (20:22)
[2018-07-13] MEDS: ZOLPIDEM 5 MG TABLET PO PRN (20:22)
[2018-07-13 21:07] LABS: *OCCULT BLOOD STOOL NEGATIVE (NEGATIVE)
[2018-07-14 05:34] VITALS: BP 109/44
[2018-07-14] MEDS: PANTOPRAZOLE SODIUM 40 MG TABLET.DR PO SCH (06:22)
[2018-07-14] MEDS: LEVOTHYROXINE SODIUM 112 MCG TABLET PO SCH (06:31)
[2018-07-14 07:11] LABS: BASOPHILS % (AUTO) 0.5 % (0.0-2.0); EOSINOPHILS # (AUTO) 0.1 K/uL (0.0-0.7); EOSINOPHILS % (AUTO) 2.6 % (0.0-7.0); HEMATOCRIT 26.8 % (31.2-41.9); LYMPHOCYTES # (AUTO) 1.2 K/uL (20.0-40.0); LYMPHOCYTES % (AUTO) 22.8 % (20.5-51.5); MEAN CORPUSCULAR HEMOGLOBIN 28.9 uug (24.7-32.8); MEAN CORPUSCULAR HGB CONC 34 g/dL (32.3-35.6); MONOCYTES # (AUTO) 0.5 K/uL (2.0-10.0); MONOCYTES % (AUTO) 8.8 % (0.0-11.0); NEUTROPHILS # (AUTO) 3.4 K/uL (1.8-8.9); NEUTROPHILS % (AUTO) 65.3 % (38.5-71.5); PLATELET COUNT (AUTO) 148 K/uL (179-408); RED BLOOD CELL COUNT(AUTO) 3.12 MIL/uL (3.63-4.92); WHITE BLOOD COUNT (AUTO) 5.2 K/uL (3.8-11.8)
[2018-07-14 07:25] LABS: CARBON DIOXIDE 29 mmol/L (21-32); CHLORIDE 109 mmol/L (98-107); CREATININE 1.2 mg/dL (0.6-1.3); GLUCOSE 91 mg/dL (74-106); MAGNESIUM 1.8 mg/dL (1.8-2.4); PHOSPHOROUS 3.7 mg/dL (2.5-4.9); POTASSIUM 4.6 mmol/L (3.5-5.1); UREA NITROGEN, BLOOD 44 mg/dL (7-18)
--- NOTE | 2018-07-14 07:57 | NUR ---
Patient noted resting in bed with eyes closed, no complaints of pain at this time, no signs of distress noted, call light in reach, bed locked and in lowest position
[2018-07-14] MEDS: SERTRALINE HCL 50 MG TABLET PO SCH (08:47)
[2018-07-14] MEDS: FERROUS SULFATE 325 MG TABEC PO SCH (08:47)
[2018-07-14] MEDS: GABAPENTIN 300 MG CAPSULE PO SCH ×2 (08:47→17:20)
[2018-07-14] MEDS: [UNRECOGNIZED DRUG - OTHER] PO SCH ×2 (08:48→17:20)
[2018-07-14] MEDS: AMIODARONE HCL 200 MG TABLET PO SCH (08:49)
[2018-07-14 16:00] VITALS: BP 110/37
[2018-07-14] MEDS: WARFARIN SODIUM 2 MG TABLET PO SCH (17:22)
[2018-07-14 17:57] LABS: *BILIRUBIN,URIN NEGATIVE (NEGATIVE); *BLOOD, URINE Trace-intact (NEGATIVE); *CLARITY,URINE CLEAR (CLEAR); *COLOR,URINE YELLOW (YELLOW); *KETONES,URINE NEGATIVE (NEGATIVE); *PROTEIN,URINE NEGATIVE (NEGATIVE); *UROBILINOGEN,URINE 0.2 E.U./dl (NORMAL); LEUKOCYTE ESTERASE ,URINE NEGATIVE (NEGATIVE); NITRITE, URINE NEGATIVE (NEGATIVE); PH,URINE 5.5 (5.0-8.0); UGLUCOSE NEGATIVE (NEGATIVE)
--- NOTE | 2018-07-14 18:00 | NUR ---
Urine analysis collected and sent to lab
[2018-07-14 18:09] LABS: MUCUS,URINE MODERATE /LPF (0-FEW); RBC,URINE 0-3 /HPF (0-3); SQUAMOUS EPITHELIAL CELL,UR FEW /HPF (NONE SEEN); WBC,URINE NONE SEEN /HPF (0-3)
--- NOTE | 2018-07-14 19:30 | NUR ---
RECEIVED PT AWAKE, ALERT, AND ORIENTEDX3. PT SHOWS NO SIGNS OF DISTRESS.PT NO COMPLAINT OF PAIN. CALL LIGHT WITHIN REACH. BED ALARM ON, LOW POSITION AND SIDE RAILS UPX2. WILL CONTINUE TO MONITOR.
[2018-07-14 19:50] VITALS: BP 131/44
[2018-07-14] MEDS: ATORVASTATIN 20 MG TABLET PO SCH (20:24)
[2018-07-14] MEDS: ZOLPIDEM 5 MG TABLET PO PRN (20:27)
[2018-07-15 05:00] VITALS: BP 111/64
[2018-07-15] MEDS: PANTOPRAZOLE SODIUM 40 MG TABLET.DR PO SCH (06:10)
--- NOTE | 2018-07-15 06:20 | NUR ---
PT SLEPT THROUGHOUT THE SHIFT. PT SHOWS NO SIGNS OF DISTRESS. PRESCRIBED MEDICATION GIVEN AND PT TOLERATED IT WELL. CALL LIGHT WITHIN REACH. BED ALARM ON. SAFETY AND COMFORT PROVIDED. WILL ENDORSE TO INCOMING NURSE FOR CONTINUITY OF CARE.
[2018-07-15] MEDS: LEVOTHYROXINE SODIUM 112 MCG TABLET PO SCH (06:37)
[2018-07-15] MEDS: GABAPENTIN 300 MG CAPSULE PO SCH ×2 (08:24→18:54)
[2018-07-15] MEDS: FERROUS SULFATE 325 MG TABEC PO SCH (08:24)
[2018-07-15] MEDS: SERTRALINE HCL 50 MG TABLET PO SCH (08:24)
[2018-07-15] MEDS: [UNRECOGNIZED DRUG - OTHER] PO SCH ×2 (08:25→18:54)
[2018-07-15] MEDS: AMIODARONE HCL 200 MG TABLET PO SCH (08:25)
[2018-07-15 16:29] VITALS: BP 115/46
[2018-07-15] MEDS: WARFARIN SODIUM 2 MG TABLET PO SCH (19:05)
[2018-07-15 19:30] VITALS: BP 122/52
[2018-07-15] MEDS: ATORVASTATIN 20 MG TABLET PO SCH (20:58)
[2018-07-15] MEDS: ZOLPIDEM 5 MG TABLET PO PRN (20:59)
[2018-07-15] MEDS: TRAMADOL HCL 50 MG TABLET PO PRN (20:59)
[2018-07-16 04:40] VITALS: BP 115/33
--- NOTE | 2018-07-16 05:52 | NUR ---
Pt slept well during the shift . Pt requested sleep medication and had a c/o pain . Pt given pain medication . A & O x 4 , VSS . Pt had no distress during the shift .
[2018-07-16] MEDS: LEVOTHYROXINE SODIUM 112 MCG TABLET PO SCH (07:06)
[2018-07-16] MEDS: PANTOPRAZOLE SODIUM 40 MG TABLET.DR PO SCH (07:06)
--- NOTE | 2018-07-16 08:05 | NUR ---
Received patient, awake, alert x4. On room air, no SOB or chest pains noted. No pain at the moment. Encouraged to call for needs. Call light within reach.
[2018-07-16 09:00] VITALS: BP 121/55
[2018-07-16] MEDS: AMIODARONE HCL 200 MG TABLET PO SCH (09:32)
[2018-07-16] MEDS: [UNRECOGNIZED DRUG - OTHER] PO SCH ×2 (09:32→17:46)
[2018-07-16] MEDS: FERROUS SULFATE 325 MG TABEC PO SCH (09:32)
[2018-07-16] MEDS: SERTRALINE HCL 50 MG TABLET PO SCH (09:33)
[2018-07-16] MEDS: GABAPENTIN 300 MG CAPSULE PO SCH ×2 (09:33→17:47)
--- NOTE | 2018-07-16 10:00 | NUR ---
Up with physical therapy, tolerating therapy well.
[2018-07-16] MEDS: TRAMADOL HCL 50 MG TABLET PO PRN (11:53)
--- NOTE | 2018-07-16 19:20 | NUR ---
Awake during initial rounds. Family at bedside. Denies any pain/discomforts. Repositioned for comfort. HOB. Safety measure and fall precaution maintained. Continue care as planned.
[2018-07-16 20:20] VITALS: BP 123/61
[2018-07-16] MEDS: ATORVASTATIN 20 MG TABLET PO SCH (20:46)
[2018-07-16] MEDS: ZOLPIDEM 5 MG TABLET PO PRN (20:48)
[2018-07-17 05:33] VITALS: BP 115/66
[2018-07-17] MEDS: LEVOTHYROXINE SODIUM 112 MCG TABLET PO SCH (06:43)
[2018-07-17] MEDS: PANTOPRAZOLE SODIUM 40 MG TABLET.DR PO SCH (06:43)
--- NOTE | 2018-07-17 06:56 | NUR ---
Shift End Report: VS stable Slept well. No complaint presented all night. All needs attended and met. Continue care as planned
--- NOTE | 2018-07-17 07:10 | NUR ---
Nurse Notes: Patient received asleep, on bed easily aroused. no SOB or distress. all needs were attended and anticipated. safety precautions observed. Will continue to monitor.
[2018-07-17 07:50] VITALS: BP 109/50
[2018-07-17] MEDS: SERTRALINE HCL 50 MG TABLET PO SCH (08:42)
[2018-07-17] MEDS: FERROUS SULFATE 325 MG TABEC PO SCH (08:42)
[2018-07-17] MEDS: AMIODARONE HCL 200 MG TABLET PO SCH (08:43)
[2018-07-17] MEDS: [UNRECOGNIZED DRUG - OTHER] PO SCH ×2 (08:43→18:08)
[2018-07-17] MEDS: GABAPENTIN 300 MG CAPSULE PO SCH ×2 (08:44→18:08)
[2018-07-17] MEDS: TRAMADOL HCL 50 MG TABLET PO PRN ×2 (15:23→22:30)
[2018-07-17 16:07] VITALS: BP 110/53
--- NOTE | 2018-07-17 17:45 | NUR ---
Received patient, awake, alert x4. With pain over lower back. PRN Tramadol given. Not in any form of distress. Encouraged to call for needs. Call light within reach
[2018-07-17] MEDS: WARFARIN SODIUM 2 MG TABLET PO SCH (18:09)
[2018-07-17] MEDS: ATORVASTATIN 20 MG TABLET PO SCH (20:42)
[2018-07-17 20:53] VITALS: BP 133/59
--- NOTE | 2018-07-17 22:59 | NUR ---
Received pt resting in bed. AAO x3. No acute distress noted. C/o generalized pain, requested pain med and was given. Dr. Thao seen pt and ordered for a back brace. Safety measures maintained. Call light and personal belongings within reach. Will continue to monitor.
--- NOTE | 2018-07-18 00:30 | NUR ---
PT C/O OF HEADACHE, PAIN SCALE OF 8 REQUESTING FOR PAIN MEDICATION. ULTRAM 50MG PO PRN GIVEN. REASSESSED PT, ASLEEP ON BED, NO SIGNS OF DISTRESS NOTED. Addendum: 07/19/18 at 0053 by MICHAELA MATHEW RN 07/19/18
[2018-07-18] MEDS: PANTOPRAZOLE SODIUM 40 MG TABLET.DR PO SCH (06:04)
[2018-07-18 06:17] VITALS: BP 104/68
[2018-07-18] MEDS: LEVOTHYROXINE SODIUM 112 MCG TABLET PO SCH (06:30)
--- NOTE | 2018-07-18 07:34 | NUR ---
Patient noted resting in bed with eyes closed, no facial cues of pain at this time, call light in reach, bed locked and in lowest positon, all needs met at this time
[2018-07-18 08:00] VITALS: BP 112/46
[2018-07-18] MEDS: GABAPENTIN 300 MG CAPSULE PO SCH ×2 (08:41→17:17)
[2018-07-18] MEDS: SERTRALINE HCL 50 MG TABLET PO SCH (08:42)
[2018-07-18] MEDS: FERROUS SULFATE 325 MG TABEC PO SCH (08:42)
[2018-07-18] MEDS: AMIODARONE HCL 200 MG TABLET PO SCH (08:43)
[2018-07-18] MEDS: [UNRECOGNIZED DRUG - OTHER] PO SCH ×2 (08:44→17:18)
[2018-07-18] MEDS: TRAMADOL HCL 50 MG TABLET PO PRN ×2 (09:08→23:30)
[2018-07-18 16:18] VITALS: BP 119/62
[2018-07-18] MEDS: WARFARIN SODIUM 2 MG TABLET PO SCH (17:18)
--- NOTE | 2018-07-18 18:50 | NUR ---
ONE TABLET OF ULTRAM GIVEN THIS SHIFT FOR BACK PAIN, NO SIGNS OF DISTRESS NOTED THIS SHIFT, NO CHANGE NOTED, WILL GIVE SHIFT REPORT TO NIGHT NURSE
--- NOTE | 2018-07-18 19:10 | NUR ---
RECEIVED PT ASLEEP ON BED, NO SIGNS OF RESPIRATORY DISTRESS NOTED. SAFETY MEASURES INITIATED, CALL [place] WITHIN REACH.
[2018-07-18 20:12] VITALS: BP 112/65
[2018-07-18] MEDS: ATORVASTATIN 20 MG TABLET PO SCH (20:27)
[2018-07-19 04:56] VITALS: BP 121/61
[2018-07-19] MEDS: LEVOTHYROXINE SODIUM 112 MCG TABLET PO SCH (06:29)
[2018-07-19] MEDS: PANTOPRAZOLE SODIUM 40 MG TABLET.DR PO SCH (06:29)
--- NOTE | 2018-07-19 06:41 | NUR ---
PT SLEPT THROUGHOUT THE SHIFT, NO COMPLAINTS OF PAIN AT THIS TIME. NO SIGNS OF RESPIRATORY DISTRESS NOTED. ALL NEEDS ATTENDED AND MET. SAFE ENVIRONMENT MAINTAINED AT ALL TIMES, CALL [place] WITHIN REACH.
[2018-07-19 08:00] VITALS: BP 136/70
[2018-07-19] MEDS: FERROUS SULFATE 325 MG TABEC PO SCH (08:54)
[2018-07-19] MEDS: GABAPENTIN 300 MG CAPSULE PO SCH ×2 (08:55→18:05)
[2018-07-19] MEDS: AMIODARONE HCL 200 MG TABLET PO SCH (08:55)
[2018-07-19] MEDS: SERTRALINE HCL 50 MG TABLET PO SCH (08:55)
[2018-07-19] MEDS: [UNRECOGNIZED DRUG - OTHER] PO SCH ×2 (08:57→18:05)
--- NOTE | 2018-07-19 13:43 | NUR ---
INTERDISCIPLINARY TEAM CONFERENCE
[2018-07-19 16:18] VITALS: BP 130/50
[2018-07-19] MEDS: WARFARIN SODIUM 2 MG TABLET PO SCH (18:05)
--- NOTE | 2018-07-19 18:44 | NUR ---
Patient resting in bed, call cueto within reach. Denies pain. Handoff to night nurse.
--- NOTE | 2018-07-19 19:10 | NUR ---
RECEIVED PT AWAKE ON BED, NO SOB, DENIES ANY CHEST PAIN. SAFETY MEASURES INITIATED, CALL [place] WITHIN REACH.
[2018-07-19 20:00] VITALS: BP 121/52
[2018-07-19] MEDS: ATORVASTATIN 20 MG TABLET PO SCH (20:44)
[2018-07-19] MEDS: TRAMADOL HCL 50 MG TABLET PO PRN (20:44)
[2018-07-20 04:00] VITALS: BP 119/47
[2018-07-20] MEDS: LEVOTHYROXINE SODIUM 112 MCG TABLET PO SCH (06:18)
[2018-07-20] MEDS: PANTOPRAZOLE SODIUM 40 MG TABLET.DR PO SCH (06:18)
--- NOTE | 2018-07-20 06:32 | NUR ---
PT SLEPT THROUGHOUT THE SHIFT. NO SIGNS OF ACUTE DISTRESS AT THIS TIME. PT HAS BEEN COMPLIANT WITH CARE. ALL NEEDS ATTENDED AND MET. SAFE ENVIRONMENT MAINTAINED AT ALL TIMES, CALL [place] WITHIN REACH.
[2018-07-20] MEDS: [UNRECOGNIZED DRUG - OTHER] PO SCH ×2 (08:32→16:46)
[2018-07-20] MEDS: SERTRALINE HCL 50 MG TABLET PO SCH (08:32)
[2018-07-20] MEDS: AMIODARONE HCL 200 MG TABLET PO SCH (08:32)
[2018-07-20] MEDS: FERROUS SULFATE 325 MG TABEC PO SCH (08:32)
[2018-07-20] MEDS: GABAPENTIN 300 MG CAPSULE PO SCH ×2 (08:34→16:46)
--- NOTE | 2018-07-20 14:29 | NUR ---
Patient is laert and orientedx4. Continue on pain management and therapy for unsteady gait and ambulation. no complaint of pain noted. will continue monitor
[2018-07-20 16:15] VITALS: BP 119/39
[2018-07-20 20:11] VITALS: BP 120/57
[2018-07-20] MEDS: ATORVASTATIN 20 MG TABLET PO SCH (20:15)
[2018-07-20] MEDS: TRAMADOL HCL 50 MG TABLET PO PRN (20:19)
[2018-07-21 05:04] VITALS: BP 115/67
--- NOTE | 2018-07-21 06:27 | NUR ---
Slept well last night. c/o pain on bilateral knee/ feet. Given ultram as requested with help. Safety measures maintained.
[2018-07-21] MEDS: PANTOPRAZOLE SODIUM 40 MG TABLET.DR PO SCH (06:30)
[2018-07-21] MEDS: LEVOTHYROXINE SODIUM 112 MCG TABLET PO SCH (06:30)
[2018-07-21] MEDS: GABAPENTIN 300 MG CAPSULE PO SCH ×2 (08:45→16:28)
[2018-07-21] MEDS: AMIODARONE HCL 200 MG TABLET PO SCH (08:45)
[2018-07-21] MEDS: SERTRALINE HCL 50 MG TABLET PO SCH (08:45)
[2018-07-21] MEDS: [UNRECOGNIZED DRUG - OTHER] PO SCH ×2 (08:46→16:28)
[2018-07-21] MEDS: FERROUS SULFATE 325 MG TABEC PO SCH (08:46)
[2018-07-21 09:05] VITALS: BP 111/61
[2018-07-21 15:47] VITALS: BP 137/48
[2018-07-21 19:50] VITALS: BP 119/49
[2018-07-21] MEDS: ATORVASTATIN 20 MG TABLET PO SCH (21:19)
[2018-07-21] MEDS: TRAMADOL HCL 50 MG TABLET PO PRN (21:21)
[2018-07-22 06:08] VITALS: BP 108/67
[2018-07-22] MEDS: LEVOTHYROXINE SODIUM 112 MCG TABLET PO SCH (06:35)
[2018-07-22] MEDS: PANTOPRAZOLE SODIUM 40 MG TABLET.DR PO SCH (06:35)
[2018-07-22] MEDS: TRAMADOL HCL 50 MG TABLET PO PRN (06:37)
--- NOTE | 2018-07-22 06:54 | NUR ---
c/o lower back pain, given Ultram, with help. Safety measures rendered.
--- NOTE | 2018-07-22 07:49 | NUR ---
Patient noted resting in be with eyes closed, arouses easily, no complaints of pain at this time, no signs of distress noted, call light in reach, bed locked and in lowest position, x2 bed rails, all needs met at this time
[2018-07-22] MEDS: [UNRECOGNIZED DRUG - OTHER] PO SCH ×2 (09:38→17:33)
[2018-07-22] MEDS: GABAPENTIN 300 MG CAPSULE PO SCH ×2 (09:38→17:33)
[2018-07-22] MEDS: SERTRALINE HCL 50 MG TABLET PO SCH (09:39)
[2018-07-22] MEDS: FERROUS SULFATE 325 MG TABEC PO SCH (09:39)
[2018-07-22] MEDS: AMIODARONE HCL 200 MG TABLET PO SCH (09:40)
[2018-07-22 15:35] VITALS: BP 149/61
[2018-07-22] MEDS: WARFARIN SODIUM 2 MG TABLET PO SCH (17:32)
[2018-07-22 19:30] VITALS: BP 113/69
[2018-07-22] MEDS: ATORVASTATIN 20 MG TABLET PO SCH (21:03)
[2018-07-23 04:30] VITALS: BP 125/43
[2018-07-23] MEDS: PANTOPRAZOLE SODIUM 40 MG TABLET.DR PO SCH (06:13)
[2018-07-23] MEDS: LEVOTHYROXINE SODIUM 112 MCG TABLET PO SCH (06:30)
--- NOTE | 2018-07-23 06:50 | NUR ---
quiet night. needs attended. no acute distress noted. fall precautions maintained. kept comfortable. denies any pain nor any discomfort. will monitor patient.
--- NOTE | 2018-07-23 07:30 | NUR ---
Report received from previous shift. Received pt. in bed comfortable with no c/o pain or discomfort. Pt. A/OX3 with no changes in mentation. No new skin condition noted. No c/o of SOB or increase work of breathing. No s/sx of bleeding, on coumadin for A. fib. Bed in locked and lowest position, x2 upper side rails up for bed mobility. Pt. made aware of plan discharge for today, verbalized clear understanding with no new concern at this time. Call light and frequently used items within reach. Emphasize with pt. used of call light, pt. verbalized clear understanding. Will continue to monitor.
[2018-07-23 08:00] VITALS: BP 112/52
[2018-07-23] MEDS: AMIODARONE HCL 200 MG TABLET PO SCH (08:41)
[2018-07-23] MEDS: FERROUS SULFATE 325 MG TABEC PO SCH (08:41)
[2018-07-23] MEDS: SERTRALINE HCL 50 MG TABLET PO SCH (08:42)
[2018-07-23] MEDS: [UNRECOGNIZED DRUG - OTHER] PO SCH ×2 (08:42→16:50)
[2018-07-23] MEDS: GABAPENTIN 300 MG CAPSULE PO SCH ×2 (08:42→16:50)
[2018-07-23 15:36] VITALS: BP 104/57
[2018-07-23] MEDS: TRAMADOL HCL 50 MG TABLET PO PRN (16:50)
[2018-07-23] MEDS: WARFARIN SODIUM 2 MG TABLET PO SCH (16:53)
--- NOTE | 2018-07-23 17:34 | NUR ---
Seen and education done by pharmacist. Home medications given to patient
--- NOTE | 2018-07-23 18:50 | NUR ---
Discharge order obtained from DR. Olivares for discharge. Instructed to go for follow up on 07/25/18 at 13:00. Instructed to take medications as prescribed. Encouraged to maintain, low fat, low salt diet. Routine discharge care done. Discharge accompanied by ambulance staff per shereen.
== END 2018-07-23 18:50 | disposition home health service (06) | DRG 194 ==
PROVIDERS: ADMIT Physical Medicine & Rehabilitation Pain Medicine; ATTEND Physical Medicine & Rehabilitation Pain Medicine
DX: I11.0 Hypertensive heart disease with heart failure (principal); N17.0 Acute kidney failure with tubular necrosis; D68.59 Other primary thrombophilia; G62.9 Polyneuropathy, unspecified; I48.0 Paroxysmal atrial fibrillation; E83.42 Hypomagnesemia; I48.91 Unspecified atrial fibrillation; D50.9 Iron deficiency anemia, unspecified; E03.9 Hypothyroidism, unspecified; E66.9 Obesity, unspecified; I50.33 Acute on chronic diastolic (congestive) heart failure; E78.5 Hyperlipidemia, unspecified; G89.29 Other chronic pain; M54.9 Dorsalgia, unspecified; I08.0 Rheumatic disorders of both mitral and aortic valves; I25.10 Atherosclerotic heart disease of native coronary artery without angina pectoris; K21.9 Gastro-esophageal reflux disease without esophagitis; R53.1 Weakness; Z68.31 Body mass index [BMI] 31.0-31.9, adult; F32.9 Major depressive disorder, single episode, unspecified; K29.70 Gastritis, unspecified, without bleeding; K44.9 Diaphragmatic hernia without obstruction or gangrene; R19.5 Other fecal abnormalities; K57.90 Diverticulosis of intestine, part unspecified, without perforation or abscess without bleeding; M19.90 Unspecified osteoarthritis, unspecified site; Z79.01 Long term (current) use of anticoagulants; Z91.81 History of falling; Z86.73 Personal history of transient ischemic attack (TIA), and cerebral infarction without residual deficits; I95.1 Orthostatic hypotension; M54.5 Low back pain; R53.81 Other malaise; R42 Dizziness and giddiness; M25.562 Pain in left knee; Z88.6 Allergy status to analgesic agent; M43.16 Spondylolisthesis, lumbar region; M54.16 Radiculopathy, lumbar region
CPT/HCPCS: 36415; 72110; 82306; 83735; 84100; 84443; 85025; 85610; 87086; 92523; 92526; 92610; 97110; 97112; 97116; 97165; 97530; 97535; C1758

== ENCOUNTER 2022-06-23 16:08 | Inpatient (IN) | payer MEDICARE, MEDICAID ==
[~2022-06-23] VITALS: Ht 165.1 cm; Wt 61.2 kg
[~2022-06-23 16:08] MED LIST changes: +AMIO200T5 PO; +ICOS1CAP PO; +OMEP40CA21 PO; -OMEP40CA37 PO; +WARF-68 PO; +[UNRECOGNIZED DRUG - CODE] PO
--- NOTE | 2022-06-23 16:18 | NUR ---
Dr. Priest on bedside for MSE.
--- NOTE | 2022-06-23 16:31 | NUR ---
Patient BIB [facility] from home for c/o weakness and diarrhea.
[2022-06-23 16:34] LABS: HEMATOCRIT 31.2 % (31.2-41.9); MEAN CORPUSCULAR HEMOGLOBIN 26.8 uug (24.7-32.8); MEAN CORPUSCULAR VOLUME 82.5 fL (75.5-95.3); PLATELET COUNT (AUTO) 207 K/uL (179-408)
[2022-06-23 16:43] LABS: CARBON DIOXIDE 24 mmol/L (21-32); CHLORIDE 107 mmol/L (98-107); GLUCOSE 91 mg/dL (74-106); POTASSIUM 3.8 mmol/L (3.5-5.1); UREA NITROGEN, BLOOD 16 mg/dL (7-18)
[2022-06-23 16:52] LABS: ALANINE AMINOTRANSFERASE 33 U/L (14-59); ALKALINE PHOSPHATASE 463 U/L (50-136); ASPARTATE AMINOTRANSFERASE 75 U/L (15-37); BILIRUBIN,DIRECT 0.2 mg/dL (0.0-0.2); BILIRUBIN,TOTAL 0.8 mg/dL (0.2-1.0); LIPASE 86 U/L (73-393); TOTAL PROTEIN, SERUM 6.6 g/dL (6.4-8.2)
[2022-06-23] MEDS ORDERED: IV NORMAL SALINE 250 ML IV ONE (17:20)
[2022-06-23] MEDS ORDERED: IOHEXOL 300MG/ML 50 ML VIAL ONE (17:20)
[2022-06-23] MEDS ORDERED: SWABABLE VALVE TRANSFER SET EA MC ONE (17:20)
--- NOTE | 2022-06-23 18:00 | NUR ---
Epic panel call placed, spoke to Annemarie , she stated she will get a hold of TOSHIA Adorno for admitting.
--- NOTE | 2022-06-23 18:07 | NUR ---
Attempted to call family for list of medication, Angel , but no response. Unable to get list of medication at this time.
[2022-06-23 18:48] LABS: *BILIRUBIN,URIN NEGATIVE (NEGATIVE); *BLOOD, URINE NEGATIVE (NEGATIVE); *CLARITY,URINE CLEAR (CLEAR); *COLOR,URINE YELLOW (YELLOW); *KETONES,URINE NEGATIVE (NEGATIVE); *UROBILINOGEN,URINE 0.2 E.U./dl (NORMAL); LEUKOCYTE ESTERASE ,URINE NEGATIVE (NEGATIVE); NITRITE, URINE NEGATIVE (NEGATIVE); PH,URINE 5.5 (5.0-8.0); UGLUCOSE NEGATIVE (NEGATIVE)
--- NOTE | 2022-06-23 18:59 | NUR ---
Report given to FLOR Lr.
[2022-06-23] MEDS ORDERED: MAGNESIUM HYDROXIDE 30 ML LIQUID UDC PO PRN (19:15)
[2022-06-23] MEDS ORDERED: ONDANSETRON 4 MG/2 ML VIAL IV PRN (19:15)
[2022-06-23] MEDS ORDERED: REMEDY ESSENTIAL ZINC PASTE 113 GM TP PRN (19:15)
--- NOTE | 2022-06-23 19:23 | NUR ---
report given to will RN pt to go to room 330.
--- NOTE | 2022-06-23 19:35 | NUR ---
Admitted patient to tele floor under the care of Jose Cruz Adorno NP patient a/0 2-3, complain of gen body weakness when turn and reposition, no sob no chest pain, tele monitor A Fib control, patient has sacral redness, incontinent of bladder, no black stool noted at this time. patient has upper denture, and missing teeth at the bottom. cont to monitor.
--- NOTE | 2022-06-23 19:49 | NUR ---
pt was transported to room 330 via [facility] with all belongings. RN Will aware that pt arrived. With assistance of a revenue accounting manager pt was moved from [place] to bed.
[2022-06-23] MEDS ORDERED: LORAZEPAM 0.5 MG TABLET PO PRN (21:00)
[2022-06-23 21:18] VITALS: BP 123/69
[2022-06-23] MEDS: PANTOPRAZOLE SODIUM 40 MG VIAL IV SCH (21:30)
[2022-06-24 00:09] VITALS: BP 118/63
[2022-06-24 04:55] VITALS: BP 143/75
[2022-06-24 05:33] LABS: *BILIRUBIN,URIN NEGATIVE (NEGATIVE); *CLARITY,URINE CLEAR (CLEAR); *COLOR,URINE YELLOW (YELLOW); *KETONES,URINE TRACE (NEGATIVE); *UROBILINOGEN,URINE 0.2 E.U./dl (NORMAL); LEUKOCYTE ESTERASE ,URINE NEGATIVE (NEGATIVE); NITRITE, URINE NEGATIVE (NEGATIVE); PH,URINE 5.5 (5.0-8.0); UGLUCOSE NEGATIVE (NEGATIVE)
[2022-06-24 05:43] LABS: *BLOOD, URINE TRACE (NEGATIVE); BACTERIA,URINE NONE SEEN /HPF (NONE SEEN); SQUAMOUS EPITHELIAL CELL,UR FEW /HPF (NONE SEEN); WBC,URINE 0-3 /HPF (0-3)
--- NOTE | 2022-06-24 06:24 | NUR ---
Patient awake no sob no chest pain, tele monitor A Fib control, no complain of pain, no bloody BM noted on this shift, patient kept clean and dry, cont to monitor.
[2022-06-24 07:49] LABS: CREATININE 0.9 mg/dL (0.6-1.3); MAGNESIUM 1.6 mg/dL (1.8-2.4); PHOSPHOROUS 3.7 mg/dL (2.5-4.9); POTASSIUM 3.2 mmol/L (3.5-5.1)
[2022-06-24 07:52] LABS: MEAN CORPUSCULAR HEMOGLOBIN 27.6 uug (24.7-32.8); PLATELET COUNT (AUTO) 200 K/uL (179-408)
[2022-06-24] MEDS: PANTOPRAZOLE SODIUM 40 MG VIAL IV SCH ×2 (08:04→20:38)
[2022-06-24] MEDS: MAGNESIUM SULFATE/D5W 100 ML IV SCH ×2 (09:20→10:18)
[2022-06-24] MEDS ORDERED: POTASSIUM CHLORIDE 20 MEQ POWDER PACKET PO ONE (10:00)
[2022-06-24 10:27] LABS: *OCCULT BLOOD STOOL NEGATIVE (NEGATIVE)
[2022-06-24 11:49] VITALS: BP 101/59
[2022-06-24] MEDS ORDERED: PANT40TA49 PO (15:21)
[2022-06-24] MEDS ORDERED: TRAZ-182 PO (15:21)
[2022-06-24] MEDS ORDERED: ATOR20TA PO (15:21)
[2022-06-24] MEDS ORDERED: METO50TA16 PO (15:21)
[2022-06-24 15:25] VITALS: BP 122/78
[2022-06-24] MEDS: METOPROLOL TARTRATE 50 MG TABLET PO SCH (16:33)
--- NOTE | 2022-06-24 19:35 | NUR ---
Patient awake no sob no chest pain, no complain of pain at this time, kept clean dry and comfortable, Patient has no bloody BM at this time, V/S stable at this time, cont to monitor.
[2022-06-24 20:00] VITALS: BP 116/52
[2022-06-24] MEDS: TRAZODONE 50 MG TABLET PO SCH (20:38)
[2022-06-24] MEDS: ATORVASTATIN 20 MG TABLET PO SCH (20:38)
[2022-06-25 04:15] VITALS: BP 120/69
--- NOTE | 2022-06-25 05:23 | NUR ---
Patient awake, no sob no chest pain, no complain of pain at this time, patient has no bloody BR noted this shift, kept clean dry and comfortable, cont to monitor.
[2022-06-25 07:05] LABS: POTASSIUM 4.3 mmol/L (3.5-5.1)
[2022-06-25 07:06] LABS: HEMATOCRIT 32.4 % (31.2-41.9); MEAN CORPUSCULAR HEMOGLOBIN 27.3 uug (24.7-32.8); MEAN CORPUSCULAR VOLUME 81.2 fL (75.5-95.3); PLATELET COUNT (AUTO) 219 K/uL (179-408)
[2022-06-25] MEDS: METOPROLOL TARTRATE 50 MG TABLET PO SCH ×2 (08:05→17:00)
[2022-06-25] MEDS: PANTOPRAZOLE SODIUM 40 MG VIAL IV SCH ×2 (08:08→20:16)
[2022-06-25 11:36] VITALS: BP 115/83
[2022-06-25 17:18] VITALS: BP 115/60
[2022-06-25] MEDS: ATORVASTATIN 20 MG TABLET PO SCH (20:16)
[2022-06-25] MEDS: TRAZODONE 50 MG TABLET PO SCH (20:16)
[2022-06-25] MEDS: TEMAZEPAM 15 MG CAPSULE PO PRN (22:01)
--- NOTE | 2022-06-26 04:53 | NUR ---
patient requested sleeping medication, Restoril administered as ordered, effective, slept well through out the shift, noted some perineal redness, z -guard applied as ordered, kept clean and dry. no acute distress noted.
[2022-06-26 06:31] LABS: HEMATOCRIT 33.9 % (31.2-41.9); MEAN CORPUSCULAR HEMOGLOBIN 27.2 uug (24.7-32.8); MEAN CORPUSCULAR VOLUME 82.3 fL (75.5-95.3); PLATELET COUNT (AUTO) 203 K/uL (179-408)
[2022-06-26 06:42] LABS: CREATININE 1.1 mg/dL (0.6-1.3); POTASSIUM 4.5 mmol/L (3.5-5.1)
[2022-06-26] MEDS: METOPROLOL TARTRATE 50 MG TABLET PO SCH ×2 (08:02→20:16)
[2022-06-26] MEDS: PANTOPRAZOLE SODIUM 40 MG TABLET.DR PO SCH ×2 (08:02→16:10)
[2022-06-26] MEDS ORDERED: CLOTRIMAZOLE 1% CREAM 30 GM TUBE TOP SCH (09:00)
[2022-06-26] MEDS: ACETAMINOPHEN 325 MG TABLET PO PRN (09:47)
[2022-06-26 11:28] VITALS: BP 115/65
[2022-06-26] MEDS: CLOTRIMAZOLE 1% CREAM 30 GM TUBE TOP SCH ×2 (12:03→16:11)
[2022-06-26] MEDS: ENSURE ENLIVE (VAN) 240 ML LIQUID PO SCH ×2 (13:27→16:10)
[2022-06-26] MEDS: ARGININE/GLUTAMINE/CALCIUM BMB 1 EACH POWD.PACK PO SCH (13:27)
[2022-06-26 16:00] VITALS: BP 138/51
[2022-06-26] MEDS: ATORVASTATIN 20 MG TABLET PO SCH (20:16)
[2022-06-26] MEDS: TRAZODONE 50 MG TABLET PO SCH (20:16)
[2022-06-26 20:36] VITALS: BP 119/81
[2022-06-27] MEDS: ACETAMINOPHEN 325 MG TABLET PO PRN (04:47)
[2022-06-27] MEDS ORDERED: HYDROCODONE/APAP 5-325MG TABLET PO PRN (05:00)
[2022-06-27] MEDS ORDERED: GUAIFENESIN/DEXTROMETHORPHAN 5 ML UDC PO PRN (05:15)
--- NOTE | 2022-06-27 05:39 | NUR ---
PATIENT REFUSED AM LABS.
[2022-06-27] MEDS: PANTOPRAZOLE SODIUM 40 MG TABLET.DR PO SCH ×2 (06:13→17:26)
[2022-06-27 06:41] VITALS: BP 105/63
[2022-06-27] MEDS: ARGININE/GLUTAMINE/CALCIUM BMB 1 EACH POWD.PACK PO SCH (08:17)
[2022-06-27] MEDS: METOPROLOL TARTRATE 50 MG TABLET PO SCH ×2 (08:17→21:41)
[2022-06-27] MEDS: ENSURE ENLIVE (VAN) 240 ML LIQUID PO SCH ×2 (08:17→17:26)
[2022-06-27] MEDS: CLOTRIMAZOLE 1% CREAM 30 GM TUBE TOP SCH ×2 (08:39→17:27)
[2022-06-27 12:00] VITALS: BP 121/57
[2022-06-27 16:02] VITALS: BP 106/58
[2022-06-27 20:00] VITALS: BP 110/75
[2022-06-27] MEDS: ATORVASTATIN 20 MG TABLET PO SCH (21:00)
[2022-06-27] MEDS: TRAZODONE 50 MG TABLET PO SCH (21:17)
[2022-06-28 04:00] VITALS: BP 114/77
[2022-06-28] MEDS: PANTOPRAZOLE SODIUM 40 MG TABLET.DR PO SCH ×2 (06:30→16:08)
[2022-06-28] MEDS: ENSURE ENLIVE (VAN) 240 ML LIQUID PO SCH ×2 (08:13→16:08)
[2022-06-28] MEDS: METOPROLOL TARTRATE 50 MG TABLET PO SCH ×4 (08:13→21:00)
[2022-06-28] MEDS: ARGININE/GLUTAMINE/CALCIUM BMB 1 EACH POWD.PACK PO SCH (08:13)
[2022-06-28] MEDS: CLOTRIMAZOLE 1% CREAM 30 GM TUBE TOP SCH ×2 (09:06→16:08)
[2022-06-28] MEDS ORDERED: APIX5TAB PO (11:53)
[2022-06-28 12:00] VITALS: BP 98/63
[2022-06-28] MEDS: APIXABAN 5 MG TABLET PO SCH ×2 (12:20→20:22)
[2022-06-28] MEDS: DOCUSATE SODIUM 100 MG CAPSULE PO SCH ×4 (12:20→21:00)
[2022-06-28] MEDS: TRAZODONE 50 MG TABLET PO SCH (20:19)
[2022-06-28] MEDS: ATORVASTATIN 20 MG TABLET PO SCH ×3 (20:19→21:00)
[2022-06-28 20:50] VITALS: BP 116/58
[2022-06-28] MEDS: TEMAZEPAM 15 MG CAPSULE PO PRN (21:24)
[2022-06-29 04:25] VITALS: BP 120/66
[2022-06-29] MEDS: PANTOPRAZOLE SODIUM 40 MG TABLET.DR PO SCH ×2 (06:42→17:14)
[2022-06-29] MEDS: ENSURE ENLIVE (VAN) 240 ML LIQUID PO SCH ×2 (08:00→17:14)
[2022-06-29] MEDS: DOCUSATE SODIUM 100 MG CAPSULE PO SCH (09:09)
[2022-06-29] MEDS: APIXABAN 5 MG TABLET PO SCH (09:10)
[2022-06-29] MEDS: ARGININE/GLUTAMINE/CALCIUM BMB 1 EACH POWD.PACK PO SCH (09:29)
[2022-06-29] MEDS: METOPROLOL TARTRATE 50 MG TABLET PO SCH (09:29)
[2022-06-29] MEDS: CLOTRIMAZOLE 1% CREAM 30 GM TUBE TOP SCH ×2 (09:29→17:14)
[2022-06-29 11:00] VITALS: BP 132/69
[2022-06-29 16:00] VITALS: BP 139/73
--- NOTE | 2022-06-29 18:35 | NUR ---
PATIENT IS STABLE AND BEING PICKED UP BY AMBULANCE TO TAKE HER TO [facility] WHERE SHE PREVIOUSLY RESIDED.
== END 2022-06-29 18:45 | DRG 393 ==
LOC: ER 16:08 → TELE3 19:26 → MEDSURG3 06-24 10:00
PROVIDERS: ADMIT Nurse Practitioner Acute Care; ATTEND Nurse Practitioner Acute Care
DX: K64.8 Other hemorrhoids (principal); I50.31 Acute diastolic (congestive) heart failure; D68.59 Other primary thrombophilia; I48.20 Chronic atrial fibrillation, unspecified; D68.9 Coagulation defect, unspecified; E03.9 Hypothyroidism, unspecified; E78.5 Hyperlipidemia, unspecified; Z86.73 Personal history of transient ischemic attack (TIA), and cerebral infarction without residual deficits; Z79.899 Other long term (current) drug therapy; Z79.01 Long term (current) use of anticoagulants; Z95.2 Presence of prosthetic heart valve; R53.1 Weakness; Z74.09 Other reduced mobility; F32.A Depression, unspecified; K57.30 Diverticulosis of large intestine without perforation or abscess without bleeding; M54.30 Sciatica, unspecified side; Z91.19 Patient's noncompliance with other medical treatment and regimen; Z79.890 Hormone replacement therapy; I11.0 Hypertensive heart disease with heart failure; N30.80 Other cystitis without hematuria; Z20.822 Contact with and (suspected) exposure to COVID-19; I05.0 Rheumatic mitral stenosis
CPT/HCPCS: 36415; 71045; 83690; 83735; 84100; 84484; 85025; 87086; 93005; 93307; 97161; A4663; A6209; C1758; C9113; G0378; J3475; Q9967

== ENCOUNTER 2024-05-26 09:27 | Inpatient (IN) | payer MEDICAID, MEDICARE ==
[~2024-05-26] VITALS: Ht 160 cm; Wt 66.7 kg
[~2024-05-26 09:27] MED LIST changes: +ALPR0.25 PO; -AMIO200T5 PO; +APIX5TAB PO; -CLOP75TA15 PO; -GABA-534 PO; -ICOS1CAP PO; -LEVO88TA2 PO; -METO-356 PO; +METO50TA16 PO; -OMEG-49 PO; -OMEP40CA21 PO; -SERT25TA PO; -TRAM50TA2 PO; -VALS160T2 PO; -WARF-68 PO; -ZOLP10TA2 PO; -[UNRECOGNIZED DRUG - CODE] PO
[2024-05-26] MEDS: IV NORMAL SALINE 1000 ML BAG IV ONE (10:11)
[2024-05-26] MEDS ORDERED: CEFTRIAXONE /D5W 50ML IVPB **ER PYXIS IV ONE (10:14)
[2024-05-26] MEDS ORDERED: AZITHROMYCIN 500MG/ D5W 250ML IVPB **ER PYXIS ONLY IV ONE ×2 (10:14→10:53)
[2024-05-26] MEDS: CEFTRIAXONE 1 G in IV DEXTROSE 5% 50 ML IV ONE (10:22)
[2024-05-26 10:31] LABS: BASOPHILS % (AUTO) 0.3 % (0.0-2.0); EOSINOPHILS # (AUTO) 0.1 K/uL (0.0-0.7); EOSINOPHILS % (AUTO) 1.9 % (0.0-7.0); HEMOGLOBIN 12.9 g/dL (10.9-14.3); LYMPHOCYTES # (AUTO) 1.4 K/uL (0.8-4.8); LYMPHOCYTES % (AUTO) 21.5 % (20.5-51.5); MEAN CORPUSCULAR HEMOGLOBIN 28.2 uug (24.7-32.8); MEAN CORPUSCULAR HGB CONC 32 g/dL (32.3-35.6); MEAN CORPUSCULAR VOLUME 87.7 fL (75.5-95.3); MONOCYTES # (AUTO) 0.5 K/uL (0.1-1.30); MONOCYTES % (AUTO) 7.1 % (0.0-11.0); NEUTROPHILS # (AUTO) 4.5 K/uL (1.8-8.9); NEUTROPHILS % (AUTO) 69.2 % (38.5-71.5); PLATELET COUNT (AUTO) 163 K/uL (179-408); RED BLOOD CELL COUNT(AUTO) 4.56 MIL/uL (3.63-4.92); WHITE BLOOD COUNT (AUTO) 6.4 K/uL (3.8-11.8)
[2024-05-26 10:47] LABS: DIFFERENTIAL COMMENT 1
[2024-05-26] MEDS: AZITHROMYCIN IV 500 MG in IV DEXTROSE 5% 250 ML IV ONE (10:54)
[2024-05-26 11:01] LABS: CALCIUM 8.9 mg/dL (8.5-10.1); CARBON DIOXIDE 22 mmol/L (21-32); CHLORIDE 112 mmol/L (98-107); CREATININE 0.9 mg/dL (0.6-1.3); GLUCOSE 99 mg/dL (74-106); SODIUM SERUM 147 mmol/L (136-145); UREA NITROGEN, BLOOD 18 mg/dL (7-18)
[2024-05-26 11:09] LABS: ABG BASE EXCESS -6.2 mmol/L (-2.0-2.0); ABG HCO3 18.1 mmol/L (22.0-26.0); ABG PCO2 32.1 mmHg (35.0-48.0); ABG PH 7.369 (7.340-7.440); ABG PO2 73.1 mmHg (75.0-100.0); ABG TOTAL HEMOGLOBIN 12.7 G/dL (12.0-16.0); AaDO2 94.5 mmHg; COHb 0.3 % (0.0-3.9); MetHb 0.3 % (0.0-1.5); O2Hb 92.9 % (94.0-97.0)
[2024-05-26 11:17] LABS: ALANINE AMINOTRANSFERASE 12 U/L (14-59); ALBUMIN 3.4 g/dL (3.4-5.0); ALKALINE PHOSPHATASE 99 U/L (50-136); ASPARTATE AMINOTRANSFERASE 9 U/L (15-37); BILIRUBIN,DIRECT 0.2 mg/dL (0.0-0.2); BILIRUBIN,TOTAL 0.8 mg/dL (0.2-1.0); NT-PRO BNP 14682 pg/mL (0-125); TOTAL PROTEIN, SERUM 6.6 g/dL (6.4-8.2)
[2024-05-26] MEDS ORDERED: FUROSEMIDE 40 MG/4 ML VIAL ONE (11:48)
[2024-05-26] MEDS ORDERED: NITROGLYCERIN OINT 1 GM PACKET TP ONE (11:48)
[2024-05-26] MEDS: FUROSEMIDE 40 MG/4 ML VIAL IV ONE (11:55)
[2024-05-26] MEDS: NITROGLYCERIN OINT 1 GM PACKET TP ONE (11:56)
[2024-05-26] MEDS ORDERED: LORAZEPAM 2 MG/1 ML VIAL ONE (12:12)
[2024-05-26] MEDS: LORAZEPAM 2 MG/1 ML VIAL IV ONE (12:29)
[2024-05-26 15:30] VITALS: BP 146/78; TEMP 97; O2SAT 97
[2024-05-26] MEDS ORDERED: METO-357 PO (18:27)
[2024-05-26] MEDS ORDERED: DIGO125T PO (18:27)
[2024-05-26] MEDS ORDERED: ATOR20TA PO (18:27)
[2024-05-26] MEDS ORDERED: APIX5TAB PO (18:27)
[2024-05-26] MEDS: DIGOXIN 125 MCG TABLET PO SCH (18:40)
[2024-05-26] MEDS ORDERED: MAGNESIUM HYDROXIDE 30 ML LIQUID UDC PO PRN (18:45)
[2024-05-26] MEDS ORDERED: ALBUTEROL SULFATE 2.5 MG/ 0.5 ML NEBU NEB PRN (18:45)
[2024-05-26] MEDS ORDERED: ONDANSETRON 4 MG/2 ML VIAL IV PRN (18:45)
[2024-05-26 19:00] VITALS: BP 131/62; TEMP 97.4; O2SAT 97
[2024-05-26] MEDS: PANTOPRAZOLE SODIUM 40 MG TABLET.DR PO SCH (20:13)
[2024-05-26] MEDS: METOPROLOL SUCCINATE XL 50 MG TAB.SR.24H PO SCH (20:14)
[2024-05-26] MEDS: APIXABAN 5 MG TABLET PO SCH (20:55)
[2024-05-26] MEDS ORDERED: METOPROLOL TARTRATE 50 MG TABLET PO SCH (21:00)
[2024-05-26] MEDS: FUROSEMIDE 40 MG/4 ML VIAL IV SCH (22:09)
[2024-05-26] MEDS: ATORVASTATIN 20 MG TABLET PO SCH (22:09)
[2024-05-26] MEDS: DOCUSATE SODIUM 250 MG CAPSULE PO SCH (22:09)
[2024-05-26 22:42] LABS: *BILIRUBIN,URIN NEGATIVE (NEGATIVE); *BLOOD, URINE TRACE (NEGATIVE); *CLARITY,URINE CLEAR (CLEAR); *COLOR,URINE Other (YELLOW); *KETONES,URINE NEGATIVE (NEGATIVE); *PROTEIN,URINE NEGATIVE (NEGATIVE); *UROBILINOGEN,URINE 0.2 E.U./dl (NORMAL); LEUKOCYTE ESTERASE ,URINE 2+ (NEGATIVE); NITRITE, URINE NEGATIVE (NEGATIVE); PH,URINE 5.5 (5.0-8.0); UGLUCOSE NEGATIVE (NEGATIVE)
[2024-05-26 23:01] LABS: BACTERIA,URINE RARE /HPF (NONE SEEN); RBC,URINE 0-3 /HPF (0-3); SQUAMOUS EPITHELIAL CELL,UR FEW /HPF (NONE SEEN)
[2024-05-27] VITALS (9 sets, daily range): BP systolic 110–147; BP diastolic 52–77; TEMP 97.5–98.5; O2SAT 92–97
[2024-05-27] MEDS: ACETAMINOPHEN 325 MG TABLET PO PRN (05:23)
[2024-05-27] MEDS: FUROSEMIDE 20 MG TABLET PO SCH (09:08)
[2024-05-27] MEDS: CEFTRIAXONE 1 G in IV DEXTROSE 5% 50 ML IV SCH (10:55)
[2024-05-27 15:23] LABS: BASOPHILS % (AUTO) 0.6 % (0.0-2.0); EOSINOPHILS # (AUTO) 0.2 K/uL (0.0-0.7); EOSINOPHILS % (AUTO) 2.9 % (0.0-7.0); HEMATOCRIT 39.6 % (31.2-41.9); HEMOGLOBIN 12.8 g/dL (10.9-14.3); LYMPHOCYTES # (AUTO) 1.2 K/uL (0.8-4.8); LYMPHOCYTES % (AUTO) 19.1 % (20.5-51.5); MEAN CORPUSCULAR HEMOGLOBIN 28.1 uug (24.7-32.8); MEAN CORPUSCULAR HGB CONC 32 g/dL (32.3-35.6); MEAN CORPUSCULAR VOLUME 87.2 fL (75.5-95.3); MONOCYTES # (AUTO) 0.6 K/uL (0.1-1.30); MONOCYTES % (AUTO) 10.3 % (0.0-11.0); NEUTROPHILS # (AUTO) 4.2 K/uL (1.8-8.9); NEUTROPHILS % (AUTO) 67.1 % (38.5-71.5); PLATELET COUNT (AUTO) 148 K/uL (179-408); RED BLOOD CELL COUNT(AUTO) 4.54 MIL/uL (3.63-4.92); RED CELL DISTRIBUTION WIDTH 14.6 % (12.3-17.7); WHITE BLOOD COUNT (AUTO) 6.2 K/uL (3.8-11.8)
[2024-05-27 15:37] LABS: DIFFERENTIAL COMMENT 1
[2024-05-27 15:56] LABS: ALBUMIN 3.2 g/dL (3.4-5.0); BILIRUBIN,TOTAL 0.8 mg/dL (0.2-1.0); CALCIUM 8.3 mg/dL (8.5-10.1); CREATININE 1.2 mg/dL (0.6-1.3); MAGNESIUM 1.6 mg/dL (1.8-2.4); PHOSPHOROUS 3.8 mg/dL (2.5-4.9); POTASSIUM 3.8 mmol/L (3.5-5.1); TOTAL PROTEIN, SERUM 6.5 g/dL (6.4-8.2)
[2024-05-27 16:21] LABS: DIGOXIN 0.7 ng/mL (0.9-2.0)
[2024-05-27 16:43] LABS: THYROID STIMULATING HORMONE 6.117 mIU/mL (0.358-3.740)
[2024-05-27] MEDS ORDERED: DOXYCYCLINE HYCLATE IV 100 MG in IV DEXTROSE 5% 100 ML IV SCH (17:00)
[2024-05-27] MEDS: DOXYCYCLINE HYCLATE IV 100 MG in IV DEXTROSE 5% 100 ML IV SCH (17:47)
[2024-05-27] MEDS ORDERED: SODIUM CHLORIDE 3% FOR INHALATION 15 ML NEBU IH ONE (20:15)
[2024-05-27] MEDS: DOCUSATE SODIUM 100 MG CAPSULE PO SCH (21:45)
[2024-05-27] MEDS: TEMAZEPAM 15 MG CAPSULE PO PRN (21:48)
[2024-05-28] VITALS (7 sets, daily range): BP systolic 110–130; BP diastolic 59–82; TEMP 97.3–98.2; O2SAT 94–97
[2024-05-28 07:29] LABS: BASOPHILS % (AUTO) 0.6 % (0.0-2.0); EOSINOPHILS # (AUTO) 0.2 K/uL (0.0-0.7); EOSINOPHILS % (AUTO) 2.9 % (0.0-7.0); HEMATOCRIT 40.9 % (31.2-41.9); HEMOGLOBIN 13.3 g/dL (10.9-14.3); LYMPHOCYTES # (AUTO) 1.4 K/uL (0.8-4.8); LYMPHOCYTES % (AUTO) 24.7 % (20.5-51.5); MEAN CORPUSCULAR HEMOGLOBIN 28.5 uug (24.7-32.8); MEAN CORPUSCULAR HGB CONC 32 g/dL (32.3-35.6); MEAN CORPUSCULAR VOLUME 87.8 fL (75.5-95.3); MONOCYTES # (AUTO) 0.6 K/uL (0.1-1.30); MONOCYTES % (AUTO) 10.3 % (0.0-11.0); NEUTROPHILS # (AUTO) 3.5 K/uL (1.8-8.9); NEUTROPHILS % (AUTO) 61.5 % (38.5-71.5); PLATELET COUNT (AUTO) 144 K/uL (179-408); RED BLOOD CELL COUNT(AUTO) 4.65 MIL/uL (3.63-4.92); RED CELL DISTRIBUTION WIDTH 14.7 % (12.3-17.7); WHITE BLOOD COUNT (AUTO) 5.7 K/uL (3.8-11.8)
[2024-05-28 07:42] LABS: CALCIUM 8.5 mg/dL (8.5-10.1); CARBON DIOXIDE 31 mmol/L (21-32); CHLORIDE 103 mmol/L (98-107); CREATININE 1.2 mg/dL (0.6-1.3); GLUCOSE 89 mg/dL (74-106); MAGNESIUM 1.5 mg/dL (1.8-2.4); PHOSPHOROUS 3.8 mg/dL (2.5-4.9); POTASSIUM 3.3 mmol/L (3.5-5.1); SODIUM SERUM 142 mmol/L (136-145); UREA NITROGEN, BLOOD 21 mg/dL (7-18)
[2024-05-28 07:48] LABS: DIFFERENTIAL COMMENT 1
[2024-05-28] MEDS: VANCOMYCIN IV 1,000 MG in IV DEXTROSE 5% 250 ML IV SCH (08:54)
[2024-05-28] MEDS: MAGNESIUM OXIDE 400 MG TABLET PO ONE (11:14)
[2024-05-28] MEDS: POTASSIUM CHLORIDE 20 MEQ TAB.PRT.SR PO ONE (12:01)
[2024-05-29 04:56] VITALS: O2SAT 98
[2024-05-29 05:45] VITALS: BP 109/68; TEMP 97.5; O2SAT 97
[2024-05-29 07:47] LABS: CALCIUM 8.4 mg/dL (8.5-10.1); CARBON DIOXIDE 24 mmol/L (21-32); CHLORIDE 102 mmol/L (98-107); GLUCOSE 88 mg/dL (74-106); POTASSIUM 4.2 mmol/L (3.5-5.1); SODIUM SERUM 137 mmol/L (136-145); UREA NITROGEN, BLOOD 23 mg/dL (7-18)
[2024-05-29 08:00] VITALS: BP 139/62; TEMP 96.9; O2SAT 97
[2024-05-29] MEDS: VANCOMYCIN IV 1,000 MG in IV DEXTROSE 5% 250 ML IV SCH (08:27)
[2024-05-29 16:10] VITALS: O2SAT 97
[2024-05-29 20:23] VITALS: BP 125/80; TEMP 98; O2SAT 95
[2024-05-30] VITALS (7 sets, daily range): BP systolic 112–129; BP diastolic 51–68; TEMP 97.4–98.2; O2SAT 94–97
[2024-05-31 04:15] VITALS: BP 104/53; TEMP 97.6; O2SAT 96
[2024-05-31] MEDS ORDERED: FURO20TA4 PO (11:03)
[2024-05-31] MEDS ORDERED: PANT40TA49 PO (11:03)
[2024-05-31] MEDS ORDERED: DOCU-141 PO (11:03)
[2024-05-31] MEDS ORDERED: ATOR10TA PO (11:03)
[2024-05-31] MEDS ORDERED: POTA8TAB3 PO (11:05)
[2024-05-31 11:30] VITALS: BP 120/72; TEMP 97.6; O2SAT 95
== END 2024-05-31 14:00 | disposition home health service (06) | DRG 194 ==
LOC: ER 09:27 → TELE3 14:48 → MEDSURG3 05-28 10:30
PROVIDERS: ADMIT Internal Medicine; ATTEND Internal Medicine
DX: I11.0 Hypertensive heart disease with heart failure (principal); J96.01 Acute respiratory failure with hypoxia; N17.9 Acute kidney failure, unspecified; I48.20 Chronic atrial fibrillation, unspecified; I69.351 Hemiplegia and hemiparesis following cerebral infarction affecting right dominant side; G62.9 Polyneuropathy, unspecified; E66.9 Obesity, unspecified; I50.33 Acute on chronic diastolic (congestive) heart failure; K21.9 Gastro-esophageal reflux disease without esophagitis; F32.A Depression, unspecified; E83.42 Hypomagnesemia; G89.29 Other chronic pain; I25.10 Atherosclerotic heart disease of native coronary artery without angina pectoris; M54.32 Sciatica, left side; M54.31 Sciatica, right side; I45.9 Conduction disorder, unspecified; Z91.199 Patient's noncompliance with other medical treatment and regimen due to unspecified reason; Z87.891 Personal history of nicotine dependence; R91.8 Other nonspecific abnormal finding of lung field; I08.0 Rheumatic disorders of both mitral and aortic valves; Z95.2 Presence of prosthetic heart valve; Z79.01 Long term (current) use of anticoagulants; E89.0 Postprocedural hypothyroidism; Z68.25 Body mass index [BMI] 25.0-25.9, adult; E78.5 Hyperlipidemia, unspecified; Z79.899 Other long term (current) drug therapy; Z87.19 Personal history of other diseases of the digestive system; Z88.6 Allergy status to analgesic agent
CPT/HCPCS: 36415; 36600; 71045; 82378; 82803; 83550; 83605; 83735; 84100; 84443; 84484; 85025; 85730; 87040; 93005; A4663; C1758; G0378; J0456; J0696; J1940; J2060; J3370; J3490; J7040; J7050

== ENCOUNTER 2024-07-17 14:44 | Inpatient (IN) | payer MEDICARE, MEDICAID ==
[~2024-07-17] VITALS: Ht 157.5 cm; Wt 45.0 kg
[~2024-07-17 14:44] MED LIST changes: -ALPR0.25 PO; +ATOR10TA PO; -ATOR20TA PO; +DIGO125T PO; +DOCU-141 PO; +FURO20TA4 PO; +METO-357 PO; -METO50TA16 PO; +PANT40TA49 PO; +POTA8TAB3 PO
--- NOTE | 2024-07-17 14:45 | NUR ---
Patient is AOx2-3. Patient can not recall the names and exact dosages of her home medicines at this time.
--- NOTE | 2024-07-17 15:31 | NUR ---
Dr [email or web address], pending MD [email or web address] time.
[2024-07-17] MEDS ORDERED: DEXAMETHASONE SOD PHOSPHATE 10 MG INJ ONE (15:50)
[2024-07-17] MEDS ORDERED: ONDANSETRON 4 MG/2 ML VIAL ONE (15:50)
[2024-07-17] MEDS ORDERED: MORPHINE SULFATE 4 MG/1 ML DISP.SYRIN ONE (15:51)
[2024-07-17 15:55] LABS: BASOPHILS % (AUTO) 0.3 % (0.0-2.0); EOSINOPHILS # (AUTO) 0.1 K/uL (0.0-0.7); EOSINOPHILS % (AUTO) 1.5 % (0.0-7.0); HEMATOCRIT 38.8 % (31.2-41.9); HEMOGLOBIN 12.6 g/dL (10.9-14.3); LYMPHOCYTES # (AUTO) 1.3 K/uL (0.8-4.8); LYMPHOCYTES % (AUTO) 13.3 % (20.5-51.5); MEAN CORPUSCULAR HEMOGLOBIN 28.1 uug (24.7-32.8); MEAN CORPUSCULAR HGB CONC 32 g/dL (32.3-35.6); MEAN CORPUSCULAR VOLUME 86.5 fL (75.5-95.3); MONOCYTES # (AUTO) 0.7 K/uL (0.1-1.30); MONOCYTES % (AUTO) 7.9 % (0.0-11.0); NEUTROPHILS # (AUTO) 7.2 K/uL (1.8-8.9); PLATELET COUNT (AUTO) 187 K/uL (179-408); RED BLOOD CELL COUNT(AUTO) 4.49 MIL/uL (3.63-4.92); RED CELL DISTRIBUTION WIDTH 15.1 % (12.3-17.7); WHITE BLOOD COUNT (AUTO) 9.4 K/uL (3.8-11.8)
[2024-07-17 16:00] LABS: DIFFERENTIAL COMMENT 1
[2024-07-17 16:01] LABS: CALCIUM 8.9 mg/dL (8.5-10.1); CARBON DIOXIDE 26 mmol/L (21-32); CHLORIDE 106 mmol/L (98-107); GLUCOSE 93 mg/dL (74-106); POTASSIUM 3.9 mmol/L (3.5-5.1); SODIUM SERUM 140 mmol/L (136-145); UREA NITROGEN, BLOOD 19 mg/dL (7-18)
[2024-07-17] MEDS: DEXAMETHASONE SOD PHOSPHATE 4 MG INJ IV ONE (16:09)
[2024-07-17] MEDS: ONDANSETRON 4 MG/2 ML VIAL IV ONE (16:11)
[2024-07-17] MEDS: MORPHINE SULFATE 4 MG/1 ML DISP.SYRIN IV ONE (16:11)
[2024-07-17 16:15] LABS: ALANINE AMINOTRANSFERASE 16 U/L (14-59); ALBUMIN 3.3 g/dL (3.4-5.0); ALKALINE PHOSPHATASE 130 U/L (50-136); ASPARTATE AMINOTRANSFERASE 18 U/L (15-37); BILIRUBIN,DIRECT 0.1 mg/dL (0.0-0.2); BILIRUBIN,TOTAL 0.5 mg/dL (0.2-1.0); NT-PRO BNP 5273 pg/mL (0-125); TOTAL PROTEIN, SERUM 6.5 g/dL (6.4-8.2)
--- NOTE | 2024-07-17 18:00 | NUR ---
Right sling applied after results of x-ray were revealed.
--- NOTE | 2024-07-17 18:54 | NUR ---
Report given to Kathie CHAVARRIA
[2024-07-17] MEDS ORDERED: ONDANSETRON 4 MG/2 ML VIAL IV PRN (19:30)
[2024-07-17] MEDS ORDERED: hydrALAZINE HCL 25 MG TABLET PO PRN (19:30)
[2024-07-17] MEDS ORDERED: ACETAMINOPHEN 325 MG TABLET PO PRN (19:30)
[2024-07-17 20:00] VITALS: BP 135/95; TEMP 97.5; O2SAT 93
--- NOTE | 2024-07-17 20:25 | NUR ---
Report given to Kassandra CHAVARRIA.
[2024-07-17] MEDS: DOCUSATE SODIUM 100 MG CAPSULE PO SCH (22:18)
[2024-07-17] MEDS: ATORVASTATIN 10 MG TABLET PO SCH (22:18)
[2024-07-17] MEDS: HYDROCODONE/APAP 5-325MG TABLET PO PRN (22:32)
--- NOTE | 2024-07-17 22:37 | NUR ---
RECEIVED THIS PT FROM [facility] [employer]. PT IS ALERT ORIENTED X 3, VERBALLY RESPONSIVE, INCONTINENT, ROOM AIR, NONAMBULATORY, NO SKIN ISSUES. CAME WITH R ELBOW FX AND SLING ON IT. PT HAD PAIN 9/10, GIVEN NORCO PRN. WHILE GOT PT ON THE FLOOR, RECEIVED PHONE CALL FROM SON AND LET PT TO TALK.
[2024-07-18] VITALS: BP 118/94; TEMP 97.1; O2SAT 93
[2024-07-18 04:00] VITALS: BP 121/69; TEMP 98.7; O2SAT 93
[2024-07-18] MEDS: MELATONIN 3 MG TABLET PO SCH (04:09)
--- NOTE | 2024-07-18 04:36 | NUR ---
PER PT'S REQUEST GOT MELATONIN 3 MG PO FOR SLEEP AID.
[2024-07-18] MEDS: PANTOPRAZOLE SODIUM 40 MG TABLET.DR PO SCH (06:34)
[2024-07-18 07:31] LABS: BASOPHILS % (AUTO) 0.4 % (0.0-2.0); EOSINOPHILS # (AUTO) 0.1 K/uL (0.0-0.7); EOSINOPHILS % (AUTO) 0.6 % (0.0-7.0); HEMATOCRIT 38.5 % (31.2-41.9); HEMOGLOBIN 12.4 g/dL (10.9-14.3); LYMPHOCYTES # (AUTO) 1.3 K/uL (0.8-4.8); LYMPHOCYTES % (AUTO) 14.9 % (20.5-51.5); MEAN CORPUSCULAR HEMOGLOBIN 28.7 uug (24.7-32.8); MEAN CORPUSCULAR HGB CONC 32 g/dL (32.3-35.6); MEAN CORPUSCULAR VOLUME 88.7 fL (75.5-95.3); MONOCYTES # (AUTO) 0.2 K/uL (0.1-1.30); MONOCYTES % (AUTO) 2.1 % (0.0-11.0); NEUTROPHILS # (AUTO) 7.3 K/uL (1.8-8.9); PLATELET COUNT (AUTO) 106 K/uL (179-408); RED BLOOD CELL COUNT(AUTO) 4.34 MIL/uL (3.63-4.92); RED CELL DISTRIBUTION WIDTH 15.1 % (12.3-17.7); WHITE BLOOD COUNT (AUTO) 8.9 K/uL (3.8-11.8)
[2024-07-18 07:35] LABS: DIFFERENTIAL COMMENT 1
[2024-07-18 07:40] LABS: ALANINE AMINOTRANSFERASE 15 U/L (14-59); ALKALINE PHOSPHATASE 120 U/L (50-136); ASPARTATE AMINOTRANSFERASE 15 U/L (15-37); BILIRUBIN,TOTAL 0.5 mg/dL (0.2-1.0); CALCIUM 8.2 mg/dL (8.5-10.1); CARBON DIOXIDE 22 mmol/L (21-32); CHLORIDE 105 mmol/L (98-107); CREATININE 1.1 mg/dL (0.6-1.3); GLUCOSE 143 mg/dL (74-106); MAGNESIUM 1.6 mg/dL (1.8-2.4); PHOSPHOROUS 3.6 mg/dL (2.5-4.9); POTASSIUM 4.6 mmol/L (3.5-5.1); SODIUM SERUM 136 mmol/L (136-145); TOTAL PROTEIN, SERUM 6.5 g/dL (6.4-8.2); UREA NITROGEN, BLOOD 19 mg/dL (7-18)
[2024-07-18 07:50] LABS: IRON, SERUM 23 ug/dL (50-175)
[2024-07-18 07:51] LABS: THYROID STIMULATING HORMONE 1.804 mIU/mL (0.358-3.740)
[2024-07-18 08:00] VITALS: BP 103/70; TEMP 97.5; O2SAT 96
[2024-07-18] MEDS: FUROSEMIDE 20 MG TABLET PO SCH (08:17)
[2024-07-18] MEDS: POTASSIUM CHLORIDE 8 MEQ TAB.PRT.SR PO SCH (08:17)
[2024-07-18] MEDS: DIGOXIN 125 MCG TABLET PO SCH (08:17)
[2024-07-18] MEDS: METOPROLOL SUCCINATE XL 25 MG TAB.SR.24H PO SCH (08:17)
[2024-07-18] MEDS ORDERED: METOPROLOL SUCCINATE XL 50 MG TAB.SR.24H PO ONE (09:00)
[2024-07-18] MEDS ORDERED: Medication Not On Formulary EA (Potassium Chloride 8 MEQ) PO SCH (09:00)
[2024-07-18] MEDS ORDERED: METOPROLOL SUCCINATE XL 50 MG TAB.SR.24H PO SCH (09:00)
[2024-07-18] MEDS: MAGNESIUM OXIDE 400 MG TABLET PO ONE (10:38)
[2024-07-18 11:12] VITALS: BP 116/70; TEMP 97.5; O2SAT 93
[2024-07-18 16:00] VITALS: BP 136/72; TEMP 97.5; O2SAT 94
--- NOTE | 2024-07-18 19:20 | NUR ---
RECEIVED PATIENT ON BED, AAOX3. ON ROOM AIR, WITH SATURATION OF 97%, NO COMPLAIN OF SOB AND CHEST PAIN NOTED. WITH BEARABLE PAIN ON RIGHT ELBOW NOTED. NO REDNESS AND SWELLING NOTED ON RIGHT ELBOW.
[2024-07-18] MEDS ORDERED: ALBUTEROL SULFATE 2.5 MG/3 ML NEBU NEB PRN (19:45)
[2024-07-18 20:00] VITALS: BP 156/51; TEMP 97.8; O2SAT 97
[2024-07-18] MEDS ORDERED: MELATONIN 3 MG TABLET PO SCH (21:00)
[2024-07-19] VITALS: BP 101/56; TEMP 97.8; O2SAT 97
[2024-07-19 04:00] VITALS: BP 121/78; TEMP 97.4; O2SAT 97
[2024-07-19 05:35] VITALS: O2SAT 97
--- NOTE | 2024-07-19 05:44 | NUR ---
STILL WITH BEARABLE RIGHT ELBOW PAIN NOTED. NO COMPLAIN OF SOB AND CHEST PAIN NOTED. ALL NEEDS ATTENDED.
[2024-07-19 07:49] VITALS: BP 126/77; TEMP 98.2; O2SAT 98
[2024-07-19 07:53] LABS: CALCIUM 9.1 mg/dL (8.5-10.1); CARBON DIOXIDE 24 mmol/L (21-32); CHLORIDE 104 mmol/L (98-107); CREATININE 1.1 mg/dL (0.6-1.3); GLUCOSE 103 mg/dL (74-106); MAGNESIUM 1.9 mg/dL (1.8-2.4); POTASSIUM 4.6 mmol/L (3.5-5.1); SODIUM SERUM 138 mmol/L (136-145); UREA NITROGEN, BLOOD 25 mg/dL (7-18)
[2024-07-19 12:00] VITALS: BP 101/60; TEMP 97.6; O2SAT 97
[2024-07-19 20:00] VITALS: BP 105/70; TEMP 97.5; O2SAT 98
[2024-07-20 06:00] VITALS: BP 138/81; TEMP 97.4; O2SAT 98
[2024-07-20 07:09] LABS: BASOPHILS % (AUTO) 0.2 % (0.0-2.0); EOSINOPHILS % (AUTO) 0.5 % (0.0-7.0); HEMATOCRIT 41.2 % (31.2-41.9); HEMOGLOBIN 13.6 g/dL (10.9-14.3); LYMPHOCYTES # (AUTO) 1.5 K/uL (0.8-4.8); LYMPHOCYTES % (AUTO) 23.9 % (20.5-51.5); MEAN CORPUSCULAR HEMOGLOBIN 28.1 uug (24.7-32.8); MEAN CORPUSCULAR HGB CONC 33 g/dL (32.3-35.6); MEAN CORPUSCULAR VOLUME 84.9 fL (75.5-95.3); MONOCYTES # (AUTO) 0.5 K/uL (0.1-1.30); MONOCYTES % (AUTO) 8.1 % (0.0-11.0); NEUTROPHILS # (AUTO) 4.3 K/uL (1.8-8.9); NEUTROPHILS % (AUTO) 67.3 % (38.5-71.5); PLATELET COUNT (AUTO) 215 K/uL (179-408); RED BLOOD CELL COUNT(AUTO) 4.85 MIL/uL (3.63-4.92); RED CELL DISTRIBUTION WIDTH 14.9 % (12.3-17.7); WHITE BLOOD COUNT (AUTO) 6.4 K/uL (3.8-11.8)
[2024-07-20 07:24] LABS: DIFFERENTIAL COMMENT 1
[2024-07-20 07:50] LABS: ALANINE AMINOTRANSFERASE 13 U/L (14-59); ALBUMIN 3.2 g/dL (3.4-5.0); ALKALINE PHOSPHATASE 103 U/L (50-136); ASPARTATE AMINOTRANSFERASE 17 U/L (15-37); BILIRUBIN,TOTAL 0.4 mg/dL (0.2-1.0); CARBON DIOXIDE 27 mmol/L (21-32); CHLORIDE 103 mmol/L (98-107); GLUCOSE 80 mg/dL (74-106); MAGNESIUM 1.9 mg/dL (1.8-2.4); PHOSPHOROUS 3.5 mg/dL (2.5-4.9); POTASSIUM 4.4 mmol/L (3.5-5.1); SODIUM SERUM 138 mmol/L (136-145); TOTAL PROTEIN, SERUM 6.8 g/dL (6.4-8.2); UREA NITROGEN, BLOOD 30 mg/dL (7-18)
[2024-07-20 09:00] VITALS: BP 137/69; TEMP 98.4; O2SAT 95
[2024-07-20 11:37] VITALS: BP 106/63; TEMP 97.9; O2SAT 96
--- NOTE | 2024-07-20 15:51 | NUR ---
PT IN BED, REPOSITIONED Q 2 HS, PT VERBALIZED PAIN AT TOLERABLE LEVEL AFTER PRN ADMINISTERED. NO DISTRESS NOTED, PT IN BED, CONVERSING WITH HER VISITORS.
[2024-07-20 16:48] VITALS: BP 116/68; TEMP 97.6; O2SAT 99
--- NOTE | 2024-07-20 19:56 | NUR ---
NSG: Received patient lying in bed.alert and oriented x3, denies pain and discomfort at this time. call light w/in reach.
[2024-07-20 20:22] VITALS: BP 129/63; TEMP 97.5; O2SAT 90
[2024-07-20] MEDS: MAGNESIUM HYDROXIDE 30 ML LIQUID UDC PO PRN (20:53)
--- NOTE | 2024-07-20 21:14 | NUR ---
NSG:mom30 ml po prn given for constipation.
--- NOTE | 2024-07-21 03:57 | NUR ---
Nsg: patient resting in bed comfortably. denies pain or discomfort. voiding through purvic. assisted with adl's. kept clean and dry through the shift. slept well. call light w/in reach.
[2024-07-21 04:00] VITALS: BP 101/65; TEMP 96.1; O2SAT 83
--- NOTE | 2024-07-21 04:35 | NUR ---
Nsg: colace routine and mom po prn was given last night not effective. now prune juice po given for constipation. encouraged po fluid. continue monitoring for safety.
--- NOTE | 2024-07-21 05:13 | NUR ---
patient has large bm. good dean care provided.
--- NOTE | 2024-07-21 08:45 | NUR ---
PATIENT SEEN BY THE PHYSICAL THERAPY AND PATIENT INSTRUCTED THAT SHE NEEDS TO LEAVE HER ARM SLING IN PLACE ORDERED BY THE DOCTOR C/O PAIN RIGHT ARM MEDICATED WITH NORCO ORDERED AND EXPRESSED RELIEF.
[2024-07-21 11:42] VITALS: BP 109/48; TEMP 97.6; O2SAT 98
[2024-07-21 16:19] VITALS: BP 98/56; TEMP 97.5; O2SAT 95
--- NOTE | 2024-07-21 18:00 | NUR ---
RESTING IN BED DENIES DISCOMFORTS AT THIS TIME CALL LIGHTS AND PERSONAL BELONGINGS ARE WITHIN EASY REACH MADE COMFORTABLE.
--- NOTE | 2024-07-21 19:00 | NUR ---
recieved patient lying in bed awake. Patient stated she was not happy. reassurance provided. Patient on room air. purewick in place with clear yellow urine in suction container. no signs of acute distress noted. all needs met. White board updated. received in report from day shift nurse that patient is removing sling, that the sling has been reapplied several times throughout the day. Will continue to provide reminders to patient to leave sling in place to keep arm stabilized. Addendum: 07/21/24 at 2351 by KAY EWING RN note entered under wrong nurse sign in. Note written and entered by Kay Ewing RN
--- NOTE | 2024-07-21 19:45 | NUR ---
Patient complaining of being in the hospital. doesnt fell like shes getting appropriate therapy. Sling was off right arm. Patient stating that no one is putting her sling on. Active listening and reassurance provided. Placed sling back on arm and advised patient that sling needs to remain in place at all times. Also educated patient that therapy is to give her tools on how to use left arm while right arm (dominant arm) is incapacitated. Patient difficult to console, even with providing education and understanding. Addendum: 07/21/24 at 2349 by KAY EWING RN previous note entered under wrong nurse sign in. Note written and entered by Kay Ewing RN
[2024-07-21 20:08] VITALS: BP 94/66; TEMP 97.5; O2SAT 96
[2024-07-21] MEDS: APIXABAN 5 MG TABLET PO SCH (21:11)
[2024-07-22 05:30] VITALS: BP 97/47; TEMP 97.6; O2SAT 96
--- NOTE | 2024-07-22 07:30 | NUR ---
RECEIVED PATIENT IN BED AWAKE WITH SLING LAYING ON THE TABLE PATIENT APPARENTLY REMOVED IT REMINDED HER THAT THE SLING NEEDED TO BE ON HER AT ALL TIMES HER DOCTOR ORDERED.STATED OKAY BUT DOES PROMPTLY FORGET.CALL LIGHT AND PERSOANL BELONGINGS ARE WITHIN EASY REACH AT THIS TIME WILL CONTINUE TO OBSERVE.
[2024-07-22 07:40] VITALS: O2SAT 96
[2024-07-22 11:45] VITALS: BP 93/57; TEMP 97.5; O2SAT 96
--- NOTE | 2024-07-22 15:36 | NUR ---
PATIENT SEEN BY DR SKY LEO WITH ORDER TO DISCHARGE PATIENT HOME HOME TODAY PATIENT AND DAUGHTER AWARE. AWAITING FOR T[employer] INS[employer]ATOR RUBBER TO ARRANGE TRANSPORTATION.
[2024-07-22 15:51] VITALS: BP 104/64; TEMP 97.7; O2SAT 96
[2024-07-22] MEDS ORDERED: ENSURE ENLIVE (VAN) 240 ML LIQUID PO SCH (17:00)
--- NOTE | 2024-07-22 17:03 | NUR ---
PATIENT DISCHARGED PICKED UP BY THE [facility] IN SATISFACTORY CONDITION WITH DISCHARGE INSTRUCTIONS AND PATIENT INSTRUCTED TO ENSURE THAT SHE KEEPS HER RIGHT ARM SLING IN PLACE AT ALL TIMES AND TO CALL TO FOLLOW UP WITH HER ORTHOPEDIC DOCTOR AN OUT PATIENT WITHIN ONE WEEK AND SHE EXPRESSED UNDERSTANDING.
== END 2024-07-22 17:03 | disposition home health service (06) | DRG 562 ==
LOC: ER 14:44 → TELE3 20:01 → MEDSURG3 07-19 11:50
PROVIDERS: ADMIT Internal Medicine; ATTEND Internal Medicine
DX: S52.122A Displaced fracture of head of left radius, initial encounter for closed fracture (principal); I50.33 Acute on chronic diastolic (congestive) heart failure; I48.20 Chronic atrial fibrillation, unspecified; I69.351 Hemiplegia and hemiparesis following cerebral infarction affecting right dominant side; J98.11 Atelectasis; M25.421 Effusion, right elbow; I11.0 Hypertensive heart disease with heart failure; X58.XXXA Exposure to other specified factors, initial encounter; M25.422 Effusion, left elbow; E89.0 Postprocedural hypothyroidism; Z74.01 Bed confinement status; G89.29 Other chronic pain; M15.9 Polyosteoarthritis, unspecified; M51.36 Other intervertebral disc degeneration, lumbar region; G62.9 Polyneuropathy, unspecified; F32.A Depression, unspecified; Z79.01 Long term (current) use of anticoagulants; K21.9 Gastro-esophageal reflux disease without esophagitis; Z95.2 Presence of prosthetic heart valve; Z87.891 Personal history of nicotine dependence; Z79.899 Other long term (current) drug therapy; Z91.148 Patient's other noncompliance with medication regimen for other reason; I25.10 Atherosclerotic heart disease of native coronary artery without angina pectoris; Z88.6 Allergy status to analgesic agent; I08.0 Rheumatic disorders of both mitral and aortic valves
CPT/HCPCS: 36415; 71045; 73020; 73070; 83550; 83735; 84100; 84443; 84484; 85025; 85730; 93005; A4606; A4663; A6213; G0378; J1100; J2270; J2405

== ENCOUNTER 2025-01-19 19:20 | Inpatient (IN) | payer MEDICARE, OTHER ==
[~2025-01-19] VITALS: Ht 162.6 cm; Wt 63.5 kg
[2025-01-19] MEDS ORDERED: AMIODARONE HCL 150 MG/3 ML VIAL IV ONE (19:45)
[2025-01-19] MEDS ORDERED: AMIODARONE HCL IV 450 MG in IV DEXTROSE 5% 250 ML IV PRN (19:45)
[2025-01-19 20:06] LABS: BASOPHILS % (AUTO) 0.7 % (0.0-2.0); EOSINOPHILS # (AUTO) 0.1 K/uL (0.0-0.7); EOSINOPHILS % (AUTO) 1.5 % (0.0-7.0); HEMATOCRIT 36.9 % (31.2-41.9); HEMOGLOBIN 12.4 g/dL (10.9-14.3); LYMPHOCYTES # (AUTO) 1.6 K/uL (0.8-4.8); LYMPHOCYTES % (AUTO) 27.2 % (20.5-51.5); MEAN CORPUSCULAR HEMOGLOBIN 29.8 uug (24.7-32.8); MEAN CORPUSCULAR HGB CONC 34 g/dL (32.3-35.6); MEAN CORPUSCULAR VOLUME 88.7 fL (75.5-95.3); MONOCYTES # (AUTO) 0.7 K/uL (0.1-1.30); MONOCYTES % (AUTO) 11.8 % (0.0-11.0); NEUTROPHILS # (AUTO) 3.5 K/uL (1.8-8.9); NEUTROPHILS % (AUTO) 58.8 % (38.5-71.5); PLATELET COUNT (AUTO) 192 K/uL (179-408); RED BLOOD CELL COUNT(AUTO) 4.16 MIL/uL (3.63-4.92); RED CELL DISTRIBUTION WIDTH 16.9 % (12.3-17.7)
[2025-01-19 20:11] LABS: DIFFERENTIAL COMMENT 1
[2025-01-19 20:20] LABS: CALCIUM 8.9 mg/dL (8.5-10.1); CARBON DIOXIDE 28 mmol/L (21-32); CHLORIDE 102 mmol/L (98-107); CREATININE 1.1 mg/dL (0.6-1.3); GLUCOSE 103 mg/dL (74-106); POTASSIUM 3.4 mmol/L (3.5-5.1); SODIUM SERUM 139 mmol/L (136-145); UREA NITROGEN, BLOOD 30 mg/dL (7-18)
[2025-01-19 20:33] LABS: ALANINE AMINOTRANSFERASE 23 U/L (14-59); ALKALINE PHOSPHATASE 92 U/L (50-136); ASPARTATE AMINOTRANSFERASE 22 U/L (15-37); BILIRUBIN,DIRECT 0.2 mg/dL (0.0-0.2); BILIRUBIN,TOTAL 0.7 mg/dL (0.2-1.0); NT-PRO BNP 4187 pg/mL (0-125); TOTAL PROTEIN, SERUM 6.4 g/dL (6.4-8.2)
[2025-01-19] MEDS ORDERED: LIDOCAINE 1%-EPI 1:100,000 20 ML VIAL ONE (20:55)
[2025-01-19] MEDS: AMIODARONE HCL IV 150 MG in IV DEXTROSE 5% 100 ML IV ONE (21:14)
[2025-01-19] MEDS: IV NORMAL SALINE 1000 ML BAG IV ONE (21:16)
[2025-01-19] MEDS ORDERED: DIGOXIN 500 MCG/2 ML AMP ONE (21:22)
[2025-01-19] MEDS: DIGOXIN 500 MCG/2 ML AMP IV ONE (21:27)
[2025-01-19] MEDS ORDERED: LORAZEPAM 2 MG/1 ML VIAL ONE (22:09)
[2025-01-19] MEDS: LORAZEPAM 2 MG/1 ML VIAL IV ONE (22:12)
[2025-01-19 22:45] VITALS: BP 128/86; TEMP 97.9; O2SAT 94
[2025-01-19] MEDS ORDERED: MAGNESIUM HYDROXIDE 30 ML LIQUID UDC PO PRN (23:30)
[2025-01-19] MEDS ORDERED: REMEDY ESSENTIAL ZINC PASTE 113 GM TP PRN (23:30)
[2025-01-19] MEDS ORDERED: ONDANSETRON 4 MG/2 ML VIAL IV PRN (23:30)
[2025-01-20] VITALS (7 sets, daily range): BP systolic 78–107; BP diastolic 44–65; TEMP 97.5–98.2; O2SAT 92–99
[2025-01-20] MEDS: ATORVASTATIN 10 MG TABLET PO SCH (00:10)
[2025-01-20] MEDS: METOPROLOL SUCCINATE XL 50 MG TAB.SR.24H PO SCH (00:10)
[2025-01-20] MEDS: APIXABAN 5 MG TABLET PO SCH (00:11)
[2025-01-20] MEDS: PANTOPRAZOLE SODIUM 40 MG TABLET.DR PO SCH (06:12)
[2025-01-20 06:27] LABS: BASOPHILS % (AUTO) 0.2 % (0.0-2.0); EOSINOPHILS # (AUTO) 0.1 K/uL (0.0-0.7); EOSINOPHILS % (AUTO) 1.2 % (0.0-7.0); HEMATOCRIT 35.7 % (31.2-41.9); HEMOGLOBIN 12.1 g/dL (10.9-14.3); LYMPHOCYTES # (AUTO) 1.1 K/uL (0.8-4.8); LYMPHOCYTES % (AUTO) 22.6 % (20.5-51.5); MEAN CORPUSCULAR HEMOGLOBIN 30.5 uug (24.7-32.8); MEAN CORPUSCULAR HGB CONC 34 g/dL (32.3-35.6); MEAN CORPUSCULAR VOLUME 90.1 fL (75.5-95.3); MONOCYTES # (AUTO) 0.7 K/uL (0.1-1.30); MONOCYTES % (AUTO) 13.1 % (0.0-11.0); NEUTROPHILS # (AUTO) 3.2 K/uL (1.8-8.9); NEUTROPHILS % (AUTO) 62.9 % (38.5-71.5); PLATELET COUNT (AUTO) 169 K/uL (179-408); RED BLOOD CELL COUNT(AUTO) 3.97 MIL/uL (3.63-4.92); RED CELL DISTRIBUTION WIDTH 16.6 % (12.3-17.7); WHITE BLOOD COUNT (AUTO) 5.1 K/uL (3.8-11.8)
[2025-01-20 07:07] LABS: CALCIUM 8.6 mg/dL (8.5-10.1); CARBON DIOXIDE 26 mmol/L (21-32); CHLORIDE 106 mmol/L (98-107); CREATININE 0.9 mg/dL (0.6-1.3); DIFFERENTIAL COMMENT 1; GLUCOSE 89 mg/dL (74-106); MAGNESIUM 1.6 mg/dL (1.8-2.4); PHOSPHOROUS 3.3 mg/dL (2.5-4.9); POTASSIUM 3.6 mmol/L (3.5-5.1); SODIUM SERUM 141 mmol/L (136-145); UREA NITROGEN, BLOOD 24 mg/dL (7-18)
[2025-01-20] MEDS: FUROSEMIDE 20 MG TABLET PO SCH (09:00)
[2025-01-20] MEDS: DIGOXIN 125 MCG TABLET PO SCH (09:00)
[2025-01-20] MEDS: MAGNESIUM OXIDE 400 MG TABLET PO ONE (12:43)
[2025-01-20] MEDS: DOCUSATE SODIUM 100 MG CAPSULE PO SCH (20:57)
[2025-01-20] MEDS: ZOLPIDEM 5 MG TABLET PO PRN (21:38)
[2025-01-21] VITALS (9 sets, daily range): BP systolic 89–100; BP diastolic 45–67; TEMP 97.4–98.1; O2SAT 94–100
[2025-01-22] MEDS: MIDODRINE HCL 5 MG TABLET PO SCH (01:44)
[2025-01-22 02:49] VITALS: O2SAT 98
[2025-01-22 05:41] VITALS: BP 97/62; TEMP 97.9; O2SAT 96
[2025-01-22 06:39] LABS: BASOPHILS % (AUTO) 0.2 % (0.0-2.0); EOSINOPHILS # (AUTO) 0.1 K/uL (0.0-0.7); HEMATOCRIT 34.9 % (31.2-41.9); HEMOGLOBIN 11.9 g/dL (10.9-14.3); LYMPHOCYTES # (AUTO) 1.2 K/uL (0.8-4.8); LYMPHOCYTES % (AUTO) 21.3 % (20.5-51.5); MEAN CORPUSCULAR HEMOGLOBIN 30.3 uug (24.7-32.8); MEAN CORPUSCULAR HGB CONC 34 g/dL (32.3-35.6); MONOCYTES # (AUTO) 0.7 K/uL (0.1-1.30); MONOCYTES % (AUTO) 13.2 % (0.0-11.0); NEUTROPHILS # (AUTO) 3.5 K/uL (1.8-8.9); NEUTROPHILS % (AUTO) 64.3 % (38.5-71.5); PLATELET COUNT (AUTO) 199 K/uL (179-408); RED BLOOD CELL COUNT(AUTO) 3.92 MIL/uL (3.63-4.92); RED CELL DISTRIBUTION WIDTH 16.4 % (12.3-17.7); WHITE BLOOD COUNT (AUTO) 5.4 K/uL (3.8-11.8)
[2025-01-22 06:50] LABS: DIFFERENTIAL COMMENT 1
[2025-01-22 06:53] LABS: ALANINE AMINOTRANSFERASE 14 U/L (14-59); ALBUMIN 2.5 g/dL (3.4-5.0); ALKALINE PHOSPHATASE 78 U/L (50-136); ASPARTATE AMINOTRANSFERASE 20 U/L (15-37); BILIRUBIN,TOTAL 0.7 mg/dL (0.2-1.0); CALCIUM 8.8 mg/dL (8.5-10.1); CARBON DIOXIDE 27 mmol/L (21-32); CHLORIDE 107 mmol/L (98-107); GLUCOSE 90 mg/dL (74-106); MAGNESIUM 1.7 mg/dL (1.8-2.4); PHOSPHOROUS 3.1 mg/dL (2.5-4.9); POTASSIUM 3.9 mmol/L (3.5-5.1); SODIUM SERUM 140 mmol/L (136-145); TOTAL PROTEIN, SERUM 5.7 g/dL (6.4-8.2); UREA NITROGEN, BLOOD 23 mg/dL (7-18)
[2025-01-22 06:59] LABS: IRON, SERUM 43 ug/dL (50-175)
[2025-01-22 07:02] LABS: THYROID STIMULATING HORMONE 6.944 mIU/mL (0.358-3.740)
[2025-01-22 10:44] VITALS: BP 103/65; TEMP 97.5; O2SAT 98
[2025-01-22] MEDS: MAGNESIUM OXIDE 400 MG TABLET PO ONE (12:17)
[2025-01-22 15:20] VITALS: BP 102/68; TEMP 97.8; O2SAT 97
[2025-01-22] MEDS: ACETAMINOPHEN 325 MG TABLET PO PRN (15:26)
[2025-01-22 17:05] VITALS: O2SAT 97
[2025-01-22 19:30] VITALS: BP 96/71; TEMP 97.5; O2SAT 95
[2025-01-23 00:33] VITALS: O2SAT 98
[2025-01-23] MEDS: LEVOTHYROXINE SODIUM 25 MCG TABLET PO SCH (06:23)
[2025-01-23 06:42] VITALS: BP 104/69; TEMP 97.8; O2SAT 98
[2025-01-23 07:06] LABS: CALCIUM 8.9 mg/dL (8.5-10.1); CARBON DIOXIDE 26 mmol/L (21-32); CHLORIDE 105 mmol/L (98-107); GLUCOSE 83 mg/dL (74-106); MAGNESIUM 1.8 mg/dL (1.8-2.4); POTASSIUM 4.2 mmol/L (3.5-5.1); SODIUM SERUM 139 mmol/L (136-145); UREA NITROGEN, BLOOD 28 mg/dL (7-18)
[2025-01-23 07:55] VITALS: BP 97/65; TEMP 98; O2SAT 99
[2025-01-23 11:10] VITALS: BP 101/57; TEMP 98; O2SAT 96
[2025-01-23] MEDS ORDERED: FURO20TA4 PO (11:37)
[2025-01-23] MEDS ORDERED: DIGO125T PO (11:37)
[2025-01-23] MEDS ORDERED: DOCU-141 PO (11:37)
[2025-01-23] MEDS ORDERED: POTA8TAB3 PO (11:37)
[2025-01-23] MEDS ORDERED: METO-357 PO (11:37)
[2025-01-23] MEDS ORDERED: LEVO25TA9 PO (11:37)
[2025-01-23] MEDS ORDERED: APIX5TAB PO (11:37)
[2025-01-23] MEDS ORDERED: ATOR10TA PO (11:37)
[2025-01-23] MEDS ORDERED: PANT40TA49 PO (11:37)
== END 2025-01-23 14:25 | disposition home health service (06) | DRG 308 ==
LOC: ER 19:20 → TELE3 22:22 → MEDSURG3 01-21 08:35
PROVIDERS: ATTEND Internal Medicine
DX: I48.91 Unspecified atrial fibrillation (principal); I50.33 Acute on chronic diastolic (congestive) heart failure; E44.0 Moderate protein-calorie malnutrition; E06.0 Acute thyroiditis; I48.20 Chronic atrial fibrillation, unspecified; I11.0 Hypertensive heart disease with heart failure; E78.5 Hyperlipidemia, unspecified; J44.9 Chronic obstructive pulmonary disease, unspecified; I25.10 Atherosclerotic heart disease of native coronary artery without angina pectoris; K21.9 Gastro-esophageal reflux disease without esophagitis; E87.6 Hypokalemia; E83.42 Hypomagnesemia; G89.29 Other chronic pain; Z91.81 History of falling; M51.361 Other intervertebral disc degeneration, lumbar region with lower extremity pain only; G62.9 Polyneuropathy, unspecified; F32.A Depression, unspecified; E89.0 Postprocedural hypothyroidism; I05.0 Rheumatic mitral stenosis; R79.89 Other specified abnormal findings of blood chemistry; Z79.52 Long term (current) use of systemic steroids; Z74.09 Other reduced mobility; Z87.81 Personal history of (healed) traumatic fracture; Z86.39 Personal history of other endocrine, nutritional and metabolic disease; Z86.19 Personal history of other infectious and parasitic diseases; Z95.2 Presence of prosthetic heart valve; Z86.73 Personal history of transient ischemic attack (TIA), and cerebral infarction without residual deficits; Z79.01 Long term (current) use of anticoagulants; Z79.899 Other long term (current) drug therapy; Z87.891 Personal history of nicotine dependence; E88.09 Other disorders of plasma-protein metabolism, not elsewhere classified
CPT/HCPCS: 36415; 71045; 83550; 83605; 83735; 84100; 84443; 84484; 85025; 85730; 87040; 93005; 94760; A4663; G0378; J0282; J1160; J2060; J3490; J7040